=== PATIENT | female | born 1990 | race Caucasian/White ===

== ENCOUNTER 2022-07-18 09:43 | Outpatient (CLI) | payer OTHER, SELFPAY ==
--- OUTSIDE RECORDS SUMMARY | 2022-07-18 09:47 | XMS_ITS | Clinical Summary ---
:1990 Author Organization [facility] [place] [address] Care Team Providers Name Role Phone Pcp, No Primary Care Provider Unavailable Allergies No known active allergies Medications Hospital, Clinic, or Other Ordered Dose Route Frequency Start Date End Date Status Facility Administered Medication levonorgestrel intrauterine 1 Device IU Q 5 YEARS 09/16/2019 Active device (MIRENA) 1 DeviceIndications: Encounter for IUD insertion Active Problems Problem Noted Date (normal spontaneous vaginal delivery) 08/06/2019 01/22/2019 Overview: Formatting of this note is dif ferent from the original. Component Latest Ref Rng & Units 07/22/2019 HEMOGLOBIN 12.0 - 16.0 g/dL 12.6 MCV 80 - 100 fL 89 Culture No Group B Streptococcus isolated. Estimated Date of Delivery: 08/15/19 Patient's last menstrual period was 10/18 (within days). Last Tdap- 06/10/2019 Last Flu vaccine- 07/27/2019 Glucose (GTT) result- Component Latest Ref Rng & Units 04/30/2019 HEMOGLOBIN 12.0 - 16.0 g/dL 11.5 (L) MCV 80 - 100 fL 90 GLUCOSE,GESTATIONAL 65 - 139 mg/dL 85 20 week US: IMPRESSION: 1.Cephalic presentation. 2.No intrinsic abnormalities noted on an atomic survey. 3.Composite ultrasound age 20 weeks 3 da ys with BENITEZ of 08/14/2019 with an earlier established BENITEZ of 08/15/2019.. No Known Allergies OB History Para Term AB Living 5 2 2 0 2 2 SAB TAB Ectopic Multiple Live Births 2 0 0 0 0 # Outcome Date GA Lbr Hernandez/2nd Weight Sex Delivery Anes PTL Lv 5 Current 4 Term 08/22/12 M Vag 3 Term 05/10/07 39w0d 08:00 3.35 kg (7 l b 6 oz) M Vag Name: Vaughn 2 SAB 1 SAB Create lab flowsheet for OB labs- Component Latest Ref Rng & Units 01/08/2019 019 01/08/2019 11:17 AM 11:17 AM 11:17 AM ANTIBODY SCREEN Negative Negative SPECIMEN EXPIRATION DATE/TIME 01/11/19 23:59 HEMOGLOBIN 12.0 - 16.0 g/dL 13.2 MCV 80 - 100 fL 88 RUBELLA IGG ANTIBODY Positive 2.33 HEMOGLOBIN A1C SCREENING <6.4 % 4.9 ABORH A Rh Positive HBSAG Nonreactive Nonreactive HEPATITIS C ANTIBODY Non-Reactive Non-Reactive HIV-1/HIV-2 ANTIBODY Non-Reactive Non-Reactive TREPONEMA PALLIDUM Negative Negative Past Medical History: Diagnosis Date ? ? Encounter for supervision of other normal , first trimester 04/01/2018 ? ? No significant past medical history Past Surgical History: Procedure Laterality Date ? ? NO PREVIOUS SURGERY No data on file. Problems (from 01/08/19 to pre sent) No problems associated with this episod eMena Pedraza, RNC.....01/22/2019 9:54 AM Encounter for supervision of other normal , f irst trimester 04/01/2018 IUD migration 12/23/2013 Diverticulitis 12/03/2013 Overview: Diagnosed with CT scan [facility] 11/10/13. Treated with Cipro for 14 days. Resolved Problems Problem Noted Date Resolved Date Supervision of other normal 01/30/2012 Overview: EDC 08/27/12 based on sure LMP Group B Strep negative on 07/02/12 Hgb 11.4 on 07/23/12 6 hours of labor with first baby Supervision of normal first 04/07/2007 Immunizations Name Administration Dates Next Due DTP 03/20/1992, 1990, 1990, 1990 DTaP 06/12/1995 HIB HbOC (HibTITER) 07/07/1991 Influenza, IIV3 (Age >=3 years) 08/07/2012 Influenza, IIV4 07/27/2019, 08/26/2017 MMR 07/07/1991 Oral Polio Vaccine 06/12/1995, 03/20/1992, 1990, 1990 Tdap 06/10/2019, 08/14/2009 Family History Relation Name Status Comments Father Alive Mother Alive Son Vaughn Alive Social History Tobacco Use Types Packs/Day Years Used Date Former Smoker Cigarettes 1 12 Quit: 06/2017 Smokeless Tobacco: Never Used Tobacco Cessation: Counseling Given: Yes Comments: patient quit 5 months ago; 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 Alcohol Use Standard Drinks/Week Comments No 0 (1 standard drink = 0.6 oz pure alcoho l) Sex Assigned at Date Recorded Not on file Obstetrics History Para Term AB IAB SAB Ectopic Multiple Living Live Births 5 2 2 0 2 0 2 2 Date Outcome GA Total Labor/2nd/3rd Weight Sex Delivery Anes PTL Rosaura A 1 A5 Name Clin Labor SAB SAB 05/10 Term 39w 8h 00m/ 3.35 kg M Vag Dev 0d (7 lb 6 oz) 08/22 Term M Last Filed Vital Signs Vital Sign Reading Time Taken Comments Blood Pressure 119/83 10/18/2021 4:06 PM [employer] Pulse 93 10/18/2021 4:06 PM [employer] Temperature 37.2 ??C (99 ??F) 10/18/2021 4:06 PM [employer] Respiratory Rate - - Oxygen Saturation 100% 10/18/2021 4:06 PM [employer] Inhaled Oxygen Concentration - - Weight 96.2 kg (212 lb) 10/18/2021 4:06 PM [employer] Height 169 cm (5' 6.54) 01/08/2019 10:47 AM [employer] Body Mass Index 33.67 01/08/2019 10:47 AM [employer] Plan of Treatment Health Maintenance Due Date Last Done Comments Depression screening for age 12+ 12/21/2019 12/21/2018, 08/2017, 04/29/2017 BMI (ht and wt on same day) for 01/08/2020 01/08/2019, 05/19, age 18+ 05/19/2018, Additional history exists Pap test for age 21-65 08/26/2020 08/26/2017, 08/26/2017, 10/15/2012, Additional history exists COVID-19 vaccine series (3 - 10/16/2021 05/16/2021, 021 Booster for Pfizer series) Influenza for age 9-49 07/18/2022 07/27/2019, 08/26/2017, 08/07/2012 Tetanus booster 06/10/2029 06/10/2019, 08/14/2009 Hepatitis C screening for age Completed 01/08/2019 18-79 Tdap Completed 06/10/2019, 08/14/2009 Results Not on filefrom Last 3 Months Insurance Payer Benefit Plan / Subscriber ID Effective Dates Phone Addre ss Type Group [facility] [id number] 2018-Present [address] [address] [place] [address] Care Teams Director Of Application Development Relationship Specialty Start Date End Date Pcp, No PCP - General 11/24/21 .
[2022-07-18 16:19] LABS: Basophils Percent Auto 1.2 % (0.0-3.0); Eosinophils Percent Auto 6.9 % (0.0-7.0); Hematocrit 42.1 % (33.0-51.0); Hemoglobin* 14.2 gm/dL (12.0-16.0); Lymphocytes Percent Auto 37.1 % (20-44); Mean Corpuscular HGB Conc 34 gm/dL (32-36); Mean Corpuscular Hemoglobin 30 pg (26-34); Mean Corpuscular Volume 88 fL (80-100); Monocytes Percent Auto 10.5 % (0.0-11.0); Neutrophils Percent Auto 44.3 % (42.0-72.0); Platelet Count* 378 K/uL (140-440); RDW Coefficient of Variation % 11.7 % (11.5-15.5); Red Blood Count 4.78 m/uL (4.00-5.20); White Blood Count* 4.21 K/uL (4.50-11.00)
[2022-07-18 16:22] LABS: Slide Review Reflex No
[2022-07-18 17:54] LABS: Chloride* 105 mmol/L (96-114); Sodium* 139 mmol/L (135-149)
[2022-07-18 17:55] LABS: Potassium* 4.7 mmol/L (3.6-5.1)
[2022-07-18 17:57] LABS: Blood Urea Nitrogen* 6 mg/dL (5-24); Carbon Dioxide* 25 mmol/L (20-32); Creatinine* 0.6 mg/dL (0.5-1.5); Estimated Glomerular Filt Rate 122 ml/min
[2022-07-18 17:58] LABS: Calcium* 9.4 mg/dL (8.4-10.6); Glucose* 93 mg/dL (60-115)
== END 2022-07-18 09:44 | disposition home or self-care (01) ==
PROVIDERS: Visit Provider Nurse Practitioner Family
DX: R10.9 Unspecified abdominal pain (principal); R82.90 Unspecified abnormal findings in urine; R11.0 Nausea
CPT/HCPCS: 36415; 80048; 85025; 87086; 87186

== ENCOUNTER 2022-07-19 11:54 | Day surgery (SDC) | payer OTHER, SELFPAY ==
[2022-07-19] VITALS (12 sets, daily range): BP systolic 94–140; BP diastolic 43–85; PULSE 63–104; RESP 14–20; TEMP 36.5–37.1; O2SAT 95–100; BMI 35.2
--- NOTE | 2022-07-19 12:44 | ED_ITS ---
HPI - General Adult General Time Seen by Provider: 12:45 Date Seen: 07/19/22 Chief complaint: Abdominal Pain Stated complaint: Right side pain Time Seen by Provider: 07/19/22 11:56 Source: patient, RN notes reviewed and old records reviewed Mode of arrival: ambulatory Limitations: no limitations History of Present Illness HPI narrative: Patient is a 32-year-old female coming in with worsening right flank pain for further evaluation. She was seen in clinic in [place] yesterday, had some mild abnormalities to urinalysis, urine culture is pending, was started on Macrobid while awaiting culture results. Her white blood count was actually low in the 4000 range. Her basic metabolic ran normal. She has had no fevers or chills. She notices pain is deep in her right flank area, is a burning-type quality in worsens with activity. There are no respiratory symptoms with this, no sore throat, no nasal congestion. No nausea or vomiting, no diarrhea but does note diminished appetite. She really has been pushing fluids thinking that this could be a urinary tract infection. She has never had a history kidney stones. She had her gallbladder out about a year ago per report. Symptoms started on Friday, today is Friday. She initially noted color/cloudy change of the urine and it being odorous. Have reviewed Memo Silva's note from her visit. Urine test is negative yesterday in clinic. Related Data Previous Rx's Medication Instructions Recorded nitrofurantoin 100 mg PO Q12H 7 days #14 caps 07/18/22 monohydrate/macrocrystals 100 mg capsule (Macrobid) Allergies Allergy/AdvReac Type Severity Reaction Status Date / Time No Known Drug Allergies Allergy Verified 07/18/22 09:28 Review of Systems Status of ROS: Reports: 10 or more systems reviewed and unremarkable except as noted in History and below PFSH PFSH Social History Smoking Status: Former smoker Do you use any of these nicotine containing products: None Second hand tobacco smoke exposure: No How often do you have a drink containing alcohol: monthly or less How many standard drinks containing alcohol do you have on a typical day: 1 or 2 How often do you have six or more drinks on one occasion: Never AUDIT-C Alcohol total score: 1 Non-prescribed substance use: denies use Exam Const: Vital Signs, click to edit/add: Vital Signs - 24 hr 07/19/22 12:06 Temperature 98.4 F Pulse Rate [Right Pulse Oximeter] 104 H Respiratory Rate 20 Blood Pressure [Ri ght Upper Arm] 140/85 H Pulse Oximetry 100 Oxygen Delivery Me thod Room Air Documenting provider has reviewed patient's vital signs: yes Common normals: no apparent distress, average body habitus, oriented x3, no limitations, healthy appearing, alert and well nourished General appearance: cooperative, comfortable and well kempt HENMT: Common normals: normocephalic, head/scalp atraumatic and hearing grossly normal bilaterally Head and scalp: normocephalic and atraumatic Eye: Common normals: PERRL, EOMs intact bilaterally, conjunctivae normal and no scleral icterus Conjunctiva: conjunctiva(e) normal Pupil: PERRL Neck & C-Spine: Common normals: full ROM, no lymphadenopathy, supple, no meningeal signs, no JVD, thyroid normal and no carotid bruits Thyroid: thyroid normal Chest: Common normals: inspection of chest normal and palpation of chest normal Resp: Common normals: normal respiratory effort, no retractions, no use of accessory muscles and clear to auscultation bilaterally Auscultation: clear to auscultation bilaterally Cardio: Common normals: no JVD, regular rate, regular rhythm, S1 normal heart sound, S2 normal heart sound, no gallops, no clicks, no murmurs and no rub Rate: regular rate Rhythm: regular rhythm Heart sounds: S1 normal and S2 normal GI: Common normals: Normal to inspection, nondistended, normoactive bowel sounds present, soft to palpation, non-tender, no hepatosplenomegaly, no masses and no bruits Palpation: soft and no hepatosplenomegaly : Common normals: no CVA tenderness Bladder/kidney exam: no CVA tenderness Back & Pelvis: Common normals: no CVA tenderness Neuro: Common normals: oriented x3 Sensorium/orientation: alert Meningeal signs: no meningeal signs Speech: speech normal Gait (neuro): normal gait Psych: Appearance: well kempt Course Course Hospital Course: Patient is declining anything for pain at this time. Will place an IV and obtain blood work. We will do CT abdomen pelvis noncontrast at this time. Her gallbladder is gone, this could be intra-abdominal pathology with an atypical appendicitis, renal issues including possible early pyelonephritis, kidney stones. She is to let me know if she does develop any abdominal pain that is requiring pain management. Reevaluation(s) Reevaluation #1: Have reviewed with patient that she has a perforated IUD out of the uterus. She has had coffee and water today and last water was about a half a cup to 3/4 of a cup about an hour ago. She has not had any food since last night. IUD is a juvencio, was placed about 3 years ago in clinic. I have spoken with Dr. Taniya Hdz regarding this case and she will be coming over to consult. Time: 14:22 Reevaluation #2: Patient is going to await surgery on OB. She declines any need for pain medicines at this time. She is aware to be NPO. Time: 16:00 Vital Signs Vital signs: Initial Vital Signs Temperature 98.4 F 07/19/22 12:06 Temperature Source Temporal Artery Scan 07/19/22 12:06 Pulse Rate 104 H 07/19/22 12:06 Pulse Rhythm 07/19/22 12:06 Pulse Strength 0+ Absent 07/19/22 12:06 Respiratory Rate 20 07/19/22 12:06 Blood Pressure 140/85 H 07/19/22 12:06 Blood Pressure Mean 103 07/19/22 12:06 Blood Pressure Position Sitting 07/19/22 12:06 Pulse Oximetry 100 07/19/22 12:06 Oxygen Delivery Method 07/19/22 12:06 Vital Signs Temperature 98.4 F 07/19/22 12:06 Pulse Rate 104 H 07/19/22 12:06 Respiratory Rate 20 07/19/22 12:06 Blood Pressure 140/85 H 07/19/22 12:06 Pulse Oximetry 100 07/19/22 12:06 Oxygen Delivery Method 07/19/22 12:06 Temperature 98.4 F 07/19/22 12:06 Pulse Rate 104 H 07/19/22 12:06 Respiratory Rate 20 07/19/22 12:06 Blood Pressure 140/85 H 07/19/22 12:06 Pulse Oximetry 100 07/19/22 12:06 Oxygen Delivery Method 07/19/22 12:06 Medical Decision Making Lab Data Lab results reviewed: Yes I reviewed the patient's lab results Labs: Lab Results 07/19/22 07/19/22 07/19/22 Range/Units 12:54 13:32 13:32 WBC 5.10 (4.50-11.00) K/uL RBC 4.84 (4.00-5.20) m/uL Hgb 14.5 (12.0-16.0) gm/dL Hct 42.2 (33.0-51.0) % MCV 87 (80-100) fL MCH 30 (26-34) pg MCHC 34 (32-36) gm/dL RDW Coeff of Dilip 11.8 (11.5-15.5) % Plt Count 377 (140-440) K/uL Neut % (Auto) 56.7 (42.0-72.0) % Lymph % (Auto) 28.0 (20-44) % [place] % (Auto) 9.8 (0.0-11.0) % Eos % (Auto) 4.9 (0.0-7.0) % Baso % (Auto) 0.4 (0.0-3.0) % Neut # (Auto) 2.89 (1.7-7.0) K/uL Lymph # (Auto) 1.43 (0.90-2.90) K/uL [place] # (Auto) 0.50 (0.00-0.90) K/UL Eos # (Auto) 0.25 (0.00-0.50) K/uL Baso # (Auto) 0.02 (0.00-0.30) K/uL Abs Immat Gran (auto) 0.01 (0.00-0.30) K/uL Sodium 139 (135-149) mmol/L Potassium 4.2 (3.6-5.1) mmol/L Chloride 104 (96-114) mmol/L Carbon Dioxide 25 (20-32) mmol/L BUN 5 (5-24) mg/dL Creatinine 0.6 (0.5-1.5) mg/dL Estimated Creat Clear 126.01 Estimated GFR 122 ml/min Glucose 93 (60-115) mg/dL Lactate (0.5-1.9) mmol/L Calcium 9.3 (8.4-10.6) mg/dL Total Bilirubin 0.3 (0.1-1.5) mg/dL AST 20 (12-35) U/L ALT 18 (4-35) U/L Alkaline Phosphatase 98 (40-150) U/L C-Reactive Protein < 0.5 L (0.5-1.0) mg/dL Total Protein 8.3 (6.0-8.3) g/dL Albumin 4.6 (3.3-5.0) g/dL Lipase 56 (23-300) U/L SARS-CoV-2 (PCR) Negative SARS-CoV-2 (Negative) 07/19/22 Range/Units 13:32 WBC (4.50-11.00) K/uL RBC (4.00-5.20) m/uL Hgb (12.0-16.0) gm/dL Hct (33.0-51.0) % MCV (80-100) fL MCH (26-34) pg MCHC (32-36) gm/dL RDW Coeff of Dilip (11.5-15.5) % Plt Count (140-440) K/uL Neut % (Auto) (42.0-72.0) % Lymph % (Auto) (20-44) % [place] % (Auto) (0.0-11.0) % Eos % (Auto) (0.0-7.0) % Baso % (Auto) (0.0-3.0) % Neut # (Auto) (1.7-7.0) K/uL Lymph # (Auto) (0.90-2.90) K/uL [place] # (Auto) (0.00-0.90) K/UL Eos # (Auto) (0.00-0.50) K/uL Baso # (Auto) (0.00-0.30) K/uL Abs Immat Gran (auto) (0.00-0.30) K/uL Sodium (135-149) mmol/L Potassium (3.6-5.1) mmol/L Chloride (96-114) mmol/L Carbon Dioxide (20-32) mmol/L BUN (5-24) mg/dL Creatinine (0.5-1.5) mg/dL Estimated Creat Clear Estimated GFR ml/min Glucose (60-115) mg/dL Lactate 0.7 (0.5-1.9) mmol/L Calcium (8.4-10.6) mg/dL Total Bilirubin (0.1-1.5) mg/dL AST (12-35) U/L ALT (4-35) U/L Alkaline Phosphatase (40-150) U/L C-Reactive Protein (0.5-1.0) mg/dL Total Protein (6.0-8.3) g/dL Albumin (3.3-5.0) g/dL Lipase (23-300) U/L SARS-CoV-2 (PCR) (Negative) Imaging Data CT scan - abdomen: Attestation: I have reviewed the pertinent imaging results. Radiologist's impression: Patient: REESE GARCIA Facility:?[facility] Patient ID:?[id number] Site Patient ID:?[id number]. Site :?[id number] Study:?CT Abdomen/Pelvis WITHOUT-07/19/2022 1:09:26 PM Ordering Physician:?Christine Sheppard Final Report: INDICATION: Right flank pain x3 days. Nausea. TECHNIQUE: CT abdomen and pelvis without contrast. COMPARISON: CT abdomen and pelvis . FINDINGS: Lower chest: Unremarkable. Liver: Mild hepatomegaly. No focal liver lesion within limits of noncontrast exam. Gallbladder and bile ducts: Gallbladder is surgically absent. No biliary ductal dilation. Pancreas: Unremarkable. No mass or inflammation. Spleen: Mild splenomegaly. Adrenal glands: Normal in size. No nodules. Kidneys: Normal in size. No suspicious masses, stones, or hydronephrosis. GI tract: Small sliding-type hiatal hernia. Stomach and duodenum are unremarkable. Normal in caliber. No sign of mass or inflammation. Appendicolith in the appendix tip with no evidence of appendicitis. Vasculature: Unremarkable. Lymph nodes: No lymphadenopathy. Abdominal wall/Omentum/Peritoneum: Small fat containing umbilical hernia. No sign of mass or infiltration. No free air or significant free fluid. Pelvis: Uterus is retroflexed. The IUD sticks to the posterior right uterine fundus with both limbs outside of the uterus along the fundal contour. (See series 4, image 49 through 56 and series 5, image 53 through 61). No pelvic free fluid. Bones: Small Schmorl`s nodes in the anterior superior endplates of L3 and L4. IMPRESSION: 1. Uterus is retroflexed. IUD perforates the fundus on the right with both limbs outside of uterus along the contour. 2. No stones or hydronephrosis. Appendectomy within the tip of the appendix with no evidence of appendicitis. Findings conveyed to ER doctor at 1:55 p.m. on 07/19/2022. Please note that all CT scans at this facility use dose modulation, iterative reconstruction, and/or weight-based dosing when appropriate to reduce radiation dose to as low as reasonably achievable. Dictated by Brodie Uribe MD @ 07/19/2022 1:56:36 PM (Electronic Signature) Critical Care Time Critical Care Time Critical Care Time: No Discharge Plan Discharge Prescriptions: No Action nitrofurantoin monohyd/m-cryst [Macrobid] 100 mg capsule 100 mg PO Q12H 7 Days Qty: 14 0RF Rx Instructions: must administer with a meal/food Follow Up/Referrals: Provider,Not a Local [Primary Care Provider] -
--- NOTE | 2022-07-19 12:51 | CRLHL7_ITS ---
For Patients: As a result of the Century Cures Act, medical imaging exams and procedure reports are released immediately into your electronic medical record. You may view this report before your referring provider. If you have questions, please contact your health care provider. INDICATION: Right flank pain x3 days. Nausea. TECHNIQUE: CT abdomen and pelvis without contrast. COMPARISON: CT abdomen and pelvis . FINDINGS: Lower chest: Unremarkable. Liver: Mild hepatomegaly. No focal liver lesion within limits of noncontrast exam. Gallbladder and bile ducts: Gallbladder is surgically absent. No biliary ductal dilation. Pancreas: Unremarkable. No mass or inflammation. Spleen: Mild splenomegaly. Adrenal glands: Normal in size. No nodules. Kidneys: Normal in size. No suspicious masses, stones, or hydronephrosis. GI tract: Small sliding-type hiatal hernia. Stomach and duodenum are unremarkable. Normal in caliber. No sign of mass or inflammation. Appendicolith in the appendix tip with no evidence of appendicitis. Vasculature: Unremarkable. Lymph nodes: No lymphadenopathy. Abdominal wall/Omentum/Peritoneum: Small fat containing umbilical hernia. No sign of mass or infiltration. No free air or significant free fluid. Pelvis: Uterus is retroflexed. The IUD sticks to the posterior right uterine fundus with both limbs outside of the uterus along the fundal contour. (See series 4, image 49 through 56 and series 5, image 53 through 61). No pelvic free fluid. Bones: Small Schmorl`s nodes in the anterior superior endplates of L3 and L4. IMPRESSION: 1. Uterus is retroflexed. IUD perforates the fundus on the right with both limbs outside of uterus along the contour. 2. No stones or hydronephrosis. Appendectomy within the tip of the appendix with no evidence of appendicitis. Findings conveyed to ER doctor at 1:55 p.m. on 07/19/2022. Please note that all CT scans at this facility use dose modulation, iterative reconstruction, and/or weight-based dosing when appropriate to reduce radiation dose to as low as reasonably achievable. Dictated by Brodie Uribe MD @ 07/19/2022 1:56:36 PM (Electronically Signed)
[2022-07-19 13:34] LABS: Lactate* 0.7 mmol/L (0.5-1.9)
[2022-07-19 13:57] LABS: Albumin* 4.6 g/dL (3.3-5.0); Basophils Absolute Auto 0.02 K/uL (0.00-0.30); Basophils Percent Auto 0.4 % (0.0-3.0); Chloride* 104 mmol/L (96-114); Eosinophils Absolute Auto 0.25 K/uL (0.00-0.50); Eosinophils Percent Auto 4.9 % (0.0-7.0); Hematocrit 42.2 % (33.0-51.0); Hemoglobin* 14.5 gm/dL (12.0-16.0); Immature Granulocytes Abs Auto 0.01 K/uL (0.00-0.30); Lymphocytes Absolute Auto 1.43 K/uL (0.90-2.90); Mean Corpuscular HGB Conc 34 gm/dL (32-36); Mean Corpuscular Hemoglobin 30 pg (26-34); Mean Corpuscular Volume 87 fL (80-100); Monocytes Percent Auto 9.8 % (0.0-11.0); Neutrophils Absolute Auto 2.89 K/uL (1.7-7.0); Neutrophils Percent Auto 56.7 % (42.0-72.0); Platelet Count* 377 K/uL (140-440); RDW Coefficient of Variation % 11.8 % (11.5-15.5); Red Blood Count 4.84 m/uL (4.00-5.20); Sodium* 139 mmol/L (135-149)
[2022-07-19 13:58] LABS: Potassium* 4.2 mmol/L (3.6-5.1)
[2022-07-19 14:00] LABS: Bilirubin Total* 0.3 mg/dL (0.1-1.5); Creatinine* 0.6 mg/dL (0.5-1.5); Est. Creatinine Clearance* 126.01; Estimated Glomerular Filt Rate 122 ml/min
[2022-07-19 14:01] LABS: Alanine Aminotransferase* 18 U/L (4-35); Alkaline Phosphatase* 98 U/L (40-150); Aspartate Amino Transferase* 20 U/L (12-35); Blood Urea Nitrogen* 5 mg/dL (5-24); Calcium* 9.3 mg/dL (8.4-10.6); Carbon Dioxide* 25 mmol/L (20-32); Glucose* 93 mg/dL (60-115); Lipase* 56 U/L (23-300); Slide Review Reflex No; Total Protein* 8.3 g/dL (6.0-8.3)
[2022-07-19 14:04] LABS: C Reactive Protein* < 0.5 mg/dL (0.5-1.0)
[2022-07-19 14:24] LABS: SARS PCR* Negative SARS-CoV-2 (Negative)
--- NOTE | 2022-07-19 16:08 | ED.NURSE ---
Report to HIMA Arteaga on OB. Pt will go to OB and await surgery.
--- NOTE | 2022-07-19 16:27 | ED.NURSE ---
Report given to OB RN.
[2022-07-19] MEDS: LACTATED RINGERS 1000 ML 1,000 ML 100 ML IV (17:35)
[2022-07-19] MEDS: KETOROLAC 30 MG/ML inj IVP (17:45)
--- NOTE | 2022-07-19 18:10 | SUR.OPER ---
Upon visual examination on procedure start, Doctor was able to remove Complete, intact IUD with a Sanaz Clamp without further intervention.
--- NOTE | 2022-07-19 18:10 | PM.PROC ---
Procedure Note Time Seen by Provider: 18:10 Date Seen: 07/19/22 Date of procedure: 07/19/22 Will [facility] bill your pro fee for this procedure?: Yes Procedure: Preoperative diagnosis: 32-year-old with R flank pain, partially perforated Mirena IUD on USN. Postoperative diagnosis: Same. Procedure: IUD removal Anesthesia: General endotracheal Surgeon: Yessica Bojorquez MD Meat Market Manager: Janet White MD EBL: 0 ml Urine output: 50 mL clear urine IVF: 500 ml Specimen: Bilateral fallopian tubes to pathology. Findings: On exam under anesthesia: The uterus was anteverted, <8week size, mobile, without masses or nodularity palpable. Adnexa were without mass or fullness bilaterally. Procedure: Patient was taken to the operating room and general anesthesia was found be adequate. She was placed in dorsal lithotomy position. She was prepped and draped in normal sterile manner. A Joaquin catheter was placed. A sterile bivalve speculum was placed in the vaginal canal to visualize the cervix. IUD strings were noted to be protruding from the cervix by at least 5 cm. The IUD strings were grasped with a Sanaz clamp and the IUD removed without difficulty. The IUD was disposed of. The speculum removed Joaquin catheter removed and the patient wakened from anesthesia and taken to the recovery room All instrument lap counts were correct at the end of the procedure. Surgeon: Yessica Bojorquez MD
--- NOTE | 2022-07-19 18:29 | W.ANESCHARGE ---
Anesthesia Charges Start Date/Time Anesthesia Start Date: 07/19/22 Anesthesia Start Time: 17:35 Stop Date/Time Anesthesia Stop Date: 07/19/22 Anesthesia Stop Time: 18:25 Summary Emergency: Yes
--- NOTE | 2022-07-19 19:20 | PC.NURSE ---
Lungs clear all lung silveira, resp even/unlabored. Dr Bojorquez at bedside discussing procedure with patient.
--- NOTE | 2022-07-19 20:16 | PC.NURSE ---
PT requesting to leave as soon as possible. Pt has not voided as of yet. Dr Bojorquez notified and reported that patient may leave at this time, does not have to use bathroom before discharge. See dc orders.
--- NOTE | 2022-08-09 12:50 | CONS_ITS ---
Intake Visit Date 07/19/22 Intake Intake BMI [18 - 64 (<18.5 or >25)] [65& Older (<23 or >30) Visit Reasons: Right side pain Allergies No Known Drug Allergies Allergy (Verified 07/18/22 09:28) PFSH PFSH Active Problems (Updated 07/25/22 @ 11:27 by Margie Silva APRN, PRODUCT APPLICATIONS SCIENTIST) Recurrent urinary tract infection (Acute) N39.0 Abnormal urine odor (Acute) R82.90 Right flank pain (Acute) R10.9 Social History (Updated 07/22/22 @ 16:50 by Margie Silva APRN, PRODUCT APPLICATIONS SCIENTIST) Narrative: Single. 3 children. Works at [employer]. No formal exercise. Non- smoker. No alcohol. No illicit drug use. Smoking Status: Former smoker Do you use any of these nicotine containing products: None Second hand tobacco smoke exposure: No How often do you have a drink containing alcohol: monthly or less How many standard drinks containing alcohol do you have on a typical day: 1 or 2 How often do you have six or more drinks on one occasion: Never AUDIT-C Alcohol total score: 1 Non-prescribed substance use: denies use HPI HPI Comments Details: This patient is a 32-year-old who is seen in the emergency department for right- sided abdominal pain. The scan showed normal appendix and no kidney stones. Please see Dr. Srinivasan's ED note for complete details. The only thing noted on CT scan was that her IUD was partially perforating through the uterine muscle. I saw the patient in the emergency department and consented her for a laparoscopic removal of her IUD. Please see my operative report for complete details. Results POC Results Results POC Labs: BUN 5 mg/dL (5-24) 07/19/22 Chloride 104 mmol/L (96-114) 07/19/22 Creatinine 0.6 mg/dL (0.5-1.5) 07/19/22 Hct 42.2 % (33.0-51.0) 07/19/22 Hgb 14.5 gm/dL (12.0-16.0) 07/19/22 Plt Count 377 K/uL (140-440) 07/19/22 RBC 4.84 m/uL (4.00-5.20) 07/19/22 WBC 5.10 K/uL (4.50-11.00) 07/19/22 Potassium 4.2 mmol/L (3.6-5.1) 07/19/22 Sodium 139 mmol/L (135-149) 07/19/22 Urine Ketones Negative (Negative) 07/18/22 Urine Protein Negative (Negative) 07/18/22 Carbon Dioxide 25 mmol/L (20-32) 07/19/22 Glucose 93 mg/dL (60-115) 07/19/22 Assessment & Plan Plan Detail Time Spent: Please review Coding section regarding the total time spent today in the care of this patient, separate from any independently billable service. Care includes but is not limited to a medically appropriate evaluation and?the?documentation?of?the care?in?the?health?record.
== END 2022-07-19 20:30 | disposition home or self-care (01) ==
LOC: ED 12:56 → SS 16:27 → OB 16:29
PROVIDERS: Emergency Provider Family Medicine; Visit Provider Obstetrics & Gynecology
PROC: (CPT 49320; principal; 2022-07-19 17:15)
DX: T83.39XA Other mechanical complication of intrauterine contraceptive device, initial encounter (principal); Y76.8 Miscellaneous obstetric and gynecological devices associated with adverse incidents, not elsewhere classified; R10.9 Unspecified abdominal pain
CPT/HCPCS: 58301; 00840; 36415; 74176; 80053; 83605; 83690; 85025; 86140; 87635; 99140; 99284; J0330; J1100; J1200; J1885; J2405; J2704; J3010; J3490; J7120

== ENCOUNTER 2022-11-29 08:11 | Outpatient (CLI) | payer OTHER, SELFPAY ==
--- NOTE | 2022-11-29 08:15 | CRLHL7_ITS ---
For Patients: As a result of the Cures Act, medical imaging exams and procedure reports are released immediately into your electronic medical record. You may view this report before your referring provider. If you have questions, please contact your health care provider. INDICATION: Dating and viability. LMP 09/26/2022. COMPARISON: None. TECHNIQUE: Real-time wilkinson-scale imaging of the pelvis was performed. FINDINGS: Sonographic imaging demonstrates a single living intrauterine gestation. The embryo has a regular cardiac rate measuring 171 beats per minute. The embryo`s crown-rump length measurement of 2.4 cm corresponds to a gestational age of 9 weeks 1 day with a sonographic due date of 07/03/2023. There is a normal-appearing yolk sac. The placenta has not yet developed. No evidence of a perigestational hemorrhage. The right ovary measures 2.8 x 1.6 x 1.5 cm and the left ovary measures 2.5 x 2.0 x 2.6 cm. Corpus luteum in the left ovary. No free fluid in the cul-de-sac. IMPRESSION: 1. Single living intrauterine gestation with crown rump length 2.4 cm which corresponds to a gestational age of 9 weeks 1 day with a sonographic due date of 07/03/2023. 2. The clinical gestational age by LMP is 9 weeks 1 day. Dictated by Skylar Blakely MD @ 11/29/2022 1:12:20 PM (Electronically Signed)
== END 2022-11-29 08:12 | disposition home or self-care (01) ==
PROVIDERS: Visit Provider Registered Nurse
DX: Z34.91 Encounter for supervision of normal pregnancy, unspecified, first trimester (principal); Z3A.09 9 weeks gestation of pregnancy
CPT/HCPCS: 76817; 86592; 86701; 86702; 86703; 86762; 86787; 86803; 86850; 86900; 86901; 87086; 87340; 87491; 87536; 87591

== ENCOUNTER 2022-12-02 15:37 | Outpatient (CLI) | payer OTHER, SELFPAY ==
[2022-12-02 20:59] LABS: Vitamin B12* 669 pg/mL (243-894)
== END 2022-12-02 15:38 | disposition home or self-care (01) ==
LOC: NFLDREF 15:38
PROVIDERS: Visit Provider Family Medicine
DX: G62.9 Polyneuropathy, unspecified (principal)
CPT/HCPCS: 82607

== ENCOUNTER 2023-01-24 11:19 | Outpatient (CLI) | payer OTHER, SELFPAY | END 2023-01-24 11:20 | disposition home or self-care (01) | PROVIDERS: Visit Provider Obstetrics & Gynecology | DX: Z34.92 Encounter for supervision of normal pregnancy, unspecified, second trimester (principal); Z3A.17 17 weeks gestation of pregnancy | CPT/HCPCS: 87086 ==

== ENCOUNTER 2023-02-07 10:09 | Outpatient (CLI) | payer OTHER, SELFPAY ==
--- NOTE | 2023-02-07 10:19 | CRLHL7_ITS ---
For Patients: As a result of the Century Cures Act, medical imaging exams and procedure reports are released immediately into your electronic medical record. You may view this report before your referring provider. If you have questions, please contact your health care provider. INDICATION: Evaluate anatomy. COMPARISON: 11/29/2022 TECHNIQUE: Real time wilkinson scale imaging of the fetus was performed as well as color Doppler analysis of the umbilical vessels. FINDINGS: Sonographic imaging demonstrates a single living intrauterine gestation. Fetus demonstrates a regular cardiac rate of 144 beats per minute. Fetus has a longitudinal vertex position. The placenta lies posteriorly without evidence of placenta previa. The edge of the placenta is located 4.2 cm from the internal cervical os. Amniotic fluid volume appears normal. Single deepest vertical pocket: 4.2 cm. The cervix is closed and measures 4.6 cm in length. The composite ultrasound gestational age is calculated at 19 weeks 5 days with an estimated sonographic due date of 06/29/2023. The estimated weight is 332 grams which lies at the 93rd %. The following biometric measurements were obtained: Biparietal diameter: 4.3 cm/19 weeks 0 days 44th% Head circumference: 16.4 cm/19 weeks 1 day 43rd% Abdominal circumference: 15.3 cm/20 weeks 4 days 86th% Femur length: 3.2 cm/19 weeks 6 days 72nd% The HC/AC ratio measures: 1.07 range (1.08-1.26) On anatomic survey, there is a normal appearance of the cerebral ventricles, cavum septi pellucidi, cisterna magna and cerebellum. The nose, lips, and facial profile appear normal. The cervical, thoracic and lumbar spine are well visualized and appear normal. There is a normal four-chamber heart view and the left and right ventricular outflow tracts appear normal. The diaphragm and stomach appear normal. The kidneys and bladder also appear normal. There is a normal three-vessel cord and cord insertion site. The four extremities appear normal. IMPRESSION: Normal OB ultrasound exam with concordance of clinical and sonographic dating. No intrinsic abnormalities noted on anatomic survey. Dictated by Fidel Sosa MD @ 02/07/2023 12:26:54 PM (Electronically Signed)
== END 2023-02-07 10:10 | disposition home or self-care (01) ==
LOC: US 10:10
PROVIDERS: Visit Provider Obstetrics & Gynecology
DX: Z34.92 Encounter for supervision of normal pregnancy, unspecified, second trimester (principal); Z3A.19 19 weeks gestation of pregnancy
CPT/HCPCS: 76805

== ENCOUNTER 2023-05-02 14:06 | Outpatient (CLI) | payer OTHER, SELFPAY | END 2023-05-02 14:07 | disposition home or self-care (01) | PROVIDERS: Visit Provider Obstetrics & Gynecology | DX: O99.713 Diseases of the skin and subcutaneous tissue complicating pregnancy, third trimester (principal); L29.9 Pruritus, unspecified; Z3A.31 31 weeks gestation of pregnancy | CPT/HCPCS: 80053; 82239 ==

== ENCOUNTER 2023-05-09 10:01 | Outpatient (CLI) | payer OTHER, SELFPAY ==
--- NOTE | 2023-05-09 10:15 | CRLHL7_ITS ---
For Patients: As a result of the Century Cures Act, medical imaging exams and procedure reports are released immediately into your electronic medical record. You may view this report before your referring provider. If you have questions, please contact your health care provider. INDICATION: Third trimester scan, evaluate growth. Multiple sclerosis. COMPARISON: None. TECHNIQUE: Real time wilkinson scale imaging of the fetus was performed. FINDINGS: Sonographic imaging demonstrates a single living intrauterine gestation. Fetus demonstrates a regular cardiac rate of 126 beats per minute. Fetus has a vertex orientation and longitudinal lie with spine to the maternal right side. The placenta lies posteriorly without evidence of placenta previa. Amniotic fluid volume appears normal and there is a single deepest pocket measurement of 4.8 cm. The composite ultrasound gestational age is calculated at 33 weeks 5 days. The estimated weight is 2170 which lies at the 77th percentile. Biparietal diameter 8.6 cm, 34 weeks 6 days, greater than the 97th percentile. Head circumference 30.8 cm, 34 weeks 2 days, 71st percentile. Abdominal circumference 29.6 cm, 33 weeks 4 days, 86th percentile. Femur length 6.2 cm, 32 weeks 0 days, 33rd percentile. The HC/AC ratio measures 1.04 range (0.95-1.11). IMPRESSION: Single living intrauterine with a composite calculated ultrasound age 33 weeks 5 days with a sonographic due date of June 22, 2023. Normal amniotic fluid volume. Dictated by Koko Castillo MD @ 05/09/2023 11:18:46 AM (Electronically Signed)
== END 2023-05-09 10:02 | disposition home or self-care (01) ==
LOC: US 10:01
PROVIDERS: Visit Provider Obstetrics & Gynecology
DX: O26.893 Other specified pregnancy related conditions, third trimester (principal); G35 Multiple sclerosis; Z3A.33 33 weeks gestation of pregnancy
CPT/HCPCS: 76816

== ENCOUNTER 2023-05-26 14:45 | Outpatient (RCR) | payer SELFPAY | END 2023-06-16 14:54 | disposition home or self-care (01) | PROVIDERS: Visit Provider Obstetrics & Gynecology | DX: G35 Multiple sclerosis (principal); G62.9 Polyneuropathy, unspecified; M79.18 Myalgia, other site; Z51.89 Encounter for other specified aftercare | CPT/HCPCS: 97110; 97162 ==

== ENCOUNTER 2023-06-05 09:45 | Outpatient (CLI) | payer OTHER, SELFPAY ==
[2023-06-06 13:19] LABS: Strep B DNA Probe NEGATIVE (Negative)
[2023-06-06 13:34] LABS: Strep B Pen/Amox Allergy No
== END 2023-06-05 09:46 | disposition home or self-care (01) ==
LOC: NFLDREF 09:45
PROVIDERS: Visit Provider Obstetrics & Gynecology
DX: Z34.93 Encounter for supervision of normal pregnancy, unspecified, third trimester (principal); Z3A.36 36 weeks gestation of pregnancy
CPT/HCPCS: 87081; 87653

== ENCOUNTER 2023-06-09 14:20 | Outpatient (CLI) | payer OTHER, SELFPAY ==
[2023-06-09 14:20] VITALS: BP 129/80; PULSE 108; RESP 20; TEMP 37; O2SAT 98
[2023-06-09 14:26] VITALS: PULSE 103; O2SAT 97
[2023-06-09 14:31] VITALS: PULSE 108; O2SAT 96
[2023-06-09 14:36] VITALS: PULSE 111; O2SAT 97
[2023-06-09 15:38] LABS: Alkaline Phosphatase* 185 U/L (40-150); Aspartate Amino Transferase* 22 U/L (12-35); Bilirubin Total* 0.3 mg/dL (0.1-1.5); Total Protein* 7.5 g/dL (6.0-8.3)
[2023-06-09 15:39] LABS: Alanine Aminotransferase* 27 U/L (4-35)
--- NOTE | 2023-06-09 17:01 | PC.OBNST ---
NST Note NST Note Start: 06/09/23 14:21 Freq: ONCE Status: Active Protocol: Document 06/09/23 16:57 LG (Rec: 06/09/23 17:01 LG [id number]) NST Note 6 Para (# of births) 3 EDC 07/03/23 Gestational Age In Weeks & Days 36 Weeks & 4 Days Patient Presented with Complaint(s) of Decreased movement,Other Other Complaints Patient presented for triage with complaints of decreased movement and a noted increase of itching in hands, feet, and eyes. Patient has a history of Cholestasis in . Patient reports the itching started this past Friday and has progressively increased since that time with more notable itching in the evening. Liver Function Tests and Bile Acids ordered per MD. Reactive Yes Appropriate for Gestational Age Yes HIMA Benítez RN Date 06/09/23 Reactive Yes Appropriate for Gestational Age Yes HIMA Abel RN Date 06/09/23 OB NST charge Yes Complete NST Note via Write Note Yes The provider's electronic signature indicates the NST is reactive/appropriate for gestational age. *Note to provider: If an addendum is required, open the patient's chart and click on the note under the Nurse/Allied Health tab.
[2023-06-11 14:40] LABS: Bile Acids, Total 10 umol/L (0-10)
== END 2023-06-09 16:10 | disposition home or self-care (01) ==
LOC: OB OUT 14:20 → OB 14:25
PROVIDERS: Visit Provider Obstetrics & Gynecology
DX: O36.8130 Decreased fetal movements, third trimester, not applicable or unspecified (principal)
CPT/HCPCS: 36415; 59025; 80076; 82239; 99213

== ENCOUNTER 2023-06-13 09:06 | Outpatient (CLI) | payer OTHER, SELFPAY | END 2023-06-13 09:07 | disposition home or self-care (01) | PROVIDERS: Visit Provider Obstetrics & Gynecology | DX: O99.713 Diseases of the skin and subcutaneous tissue complicating pregnancy, third trimester (principal); L29.9 Pruritus, unspecified; Z3A.37 37 weeks gestation of pregnancy | CPT/HCPCS: 80076; 82239 ==

== ENCOUNTER 2023-06-14 07:21 | Inpatient (IN) | payer OTHER, SELFPAY ==
[2023-06-14] VITALS (107 sets, daily range): BP systolic 97–135; BP diastolic 53–85; PULSE 66–120; RESP 16–20; TEMP 36.8–37.2; O2SAT 87–100; BMI 38.6
--- NOTE | 2023-06-14 09:41 | P.LDBA_ITS ---
Subjective History of Present Illness Time Seen by Provider: 08:30 Date Seen: 06/14/23 Narrative: Patient is being admitted to Labor and Delivery for IOL in the setting of suspected ICP. She is a 33 year old at 37 2/7 weeks gestation. Her full history and physical was dictated by Dr. White on 06/13/23. Please see this for details. OB PROBLEM LIST: Preliminary HIV was reactive. Confirmatory testing was negative. (Negative antibodies and negative quant) 1. Working diagnosis of Multiple Sclerosis by [facility] currently - Brain and Spinal cord MRI 12/09/22: Hyperintense lesions in the lower cervical cord and upper thoracic cord suspicious for demyelinating disorder like MS, transverse myelitis, neuromyelitis optica. Brain MRI: artifact vs bilateral optical neuritis, no cerebral demyelinating findings. -Lumbar Puncture on 01/14/23 - Ophthalmology on 01/01/2023: No signs of optic neuritis or other neuro op signs of MS - Plan per neurology: reassess after delivery due to inconclusive findings - she is currently not on any medications. - her MFM at [facility]: No evidence of has a negative impact on long-term course cervical question of MS. She also received topical vaccines administration string . OB anesthesiologist was consulted regarding oral axial anesthesia. No contraindication to neuraxial anesthesia and they would not require further imaging of her spine. If symptoms worsens, steroids, including IV methylprednisolone can be used during . - May receive steroids as indicated. - Growth scan at 32 weeks: EFW 77%tile, AC 86%tile. - Anesthesia consult: 04/03/23 2. BMI 34.2. Hemoglobin A1C: 5.0 2. H/o 2 miscarriages 3. Intrahepatic Cholestasis of Labs ordered: LFTs and serum total bile acids: ordered Diagnosed based on: - Pruritis, predominately in the palms and feet and usually worse at night: Present - Elevated bile acids: 05/02 was 10, pending bile acids on 06/13 - Elevated transaminases: No - H/o cholestasis w/ last - Normal liver enzymes on 08/08 - Normal AST, ALT and bile acids on 05/02/2023. 4. contraception: - Considering vasectomy Flu: declines. Recommended. Covid: completed, not boosted. Recommended booster. Tdap: 04/18/2023 OB - Problem Based A/P Additional Plan (1) Encounter for induction of labor: Status: Acute Plan 1. IOL with IV Oxytocin and AROM when able. 2. GBS negative, no need for antibiotic prophylaxis. 3. Patient plans to get an epidural. 4. Expect a vaginal delivery. OB Exam Physical Exam Vital signs: Temp Pulse Resp BP Pulse Ox 98.2 F 110 H 18 122/75 96 06/14/23 07:45 06/14/23 07:45 06/14/23 07:45 06/14/23 07:45 06/14/23 07:46 Detailed Labor and Delivery Exam Patient Gravid: Yes Dilation (cm): 2 Effacement (%): 75 Cervix position: mid Consistency: soft Contraction Frequency: Irregular Tachysystole: No Contraction intensity: Mild Fetus (Single) Station: -2 Amniotic Membrane Status: intact Heart Rate Baseline: 130 Monitor Accelerations: Present Monitor Decelerations: Variable It Compliance Manager Variability: Moderate (6-25)
[2023-06-14] MEDS: LACTATED RINGERS 1000 ML 1,000 ML 125 ML IV ×2 (09:48→12:49)
[2023-06-14] MEDS: OXYTOCIN 30 unit/500 ML in NS 30 UNIT/500 ML BAG IVPB (09:50)
--- NOTE | 2023-06-14 12:13 | PM.OBPNL ---
Subjective Time Seen by Provider: 12:13 Date Seen: 06/14/23 Narrative: Okay Objective Vital Signs: Last Vital Signs Temp 98.4 F 06/14/23 11:42 Pulse 82 06/14/23 11:42 Resp 18 06/14/23 11:42 BP 117/58 L 06/14/23 11:42 Pulse Ox 96 06/14/23 07:46 Pelvic Exam Dilation (cm): 4-5 Effacement (%): 80 Station: -2 Contractions Monitor mode: External Contraction pattern: Regular Contraction intensity: Mild Pitocin Rate (mU/min): 4 Assessment Assessment: induction ongoing Station: -2 Amniotic Membrane Status: AROM Status: Category l Heart Rate Baseline: 130 [facility] Variability: Moderate (6-25) Monitor Accelerations: Present Monitor Decelerations: None Plan Plan: Verbal consent obtained for AROM. Small amount of clear fluid. Cervix after AROM 5cm. Progressing well. She is requesting an epidural at the moment. Will f/u closely.
[2023-06-14] MEDS: fentaNYL 250 MCG/5 ML inj 100 MCG EPIDURAL (12:49)
[2023-06-14] MEDS: LIDOCAINE 2% (PF) 5 ML VIAL EPIDURAL (12:51)
[2023-06-14] MEDS: ROPIVACAINE 0.2% 100 ml 100 ML 12 MG EPIDURAL (12:56)
[2023-06-14] MEDS: PHENYLEPHRINE 100 MCG/ML SYRINGE IVP (12:58)
--- NOTE | 2023-06-14 13:07 | P.ANBPRC_ITS ---
[facility] Medical History Conjunctivitis ?H10.9 - Unspecified conjunctivitis (ICD-10) Miscarriage ?O03.9 - Complete or unspecified spontaneous without complication (ICD-10) Cholestasis during ?O26.619 - Liver and biliary tract disorders in , unspecified trimester (ICD-10) ?K83.1 - Obstruction of bile duct (ICD-10) Surgical History H/O dilation and curettage ?Z98.890 - Other specified postprocedural states (ICD-10) Social History Narrative: Single. 3 children. Works at [employer]. No formal exercise. Non- smoker. No alcohol. No illicit drug use. What is your current living situation?: I presently have a place to live Problems where you live: no known problems In the past 12 months, utilities in danger of being shut off: no In the past 12 mos, have been you worried that your food would run out before you had money to buy more?: never true In the past 12 mos, the food you bought just didn't last and you didn't have money to buy more?: never true Smoking Status: Former smoker Do you use any of these nicotine containing products: None Second hand tobacco smoke exposure: No How often do you have a drink containing alcohol: monthly or less How many standard drinks containing alcohol do you have on a typical day: 1 or 2 How often do you have six or more drinks on one occasion: Never AUDIT-C Alcohol total score: 1 Non-prescribed substance use: denies use How often does anyone, including family, friends and others, physically hurt you : never How often does anyone, including family, friends and others, insult or talk down to you: never How often does anyone, including family, friends and others, threaten you with harm: never How often does anyone, including family, friends and others, scream or curse at you: never Little interest or pleasure in doing things: not at all Feeling down, depressed, or hopeless: not at all Meds Home Medications and Allergies Home Medications Medication Instructions Recorded Confirmed Type prenat.vits,fidelina,[id number] 1 tab PO QDAY 11/29/22 06/14/23 History Allergies Allergy/AdvReac Type Severity Reaction Status Date / Time No Known Drug Allergies Allergy Verified 06/14/23 12:37 Results Vital Signs Vital Signs: Last Vital Signs Temp 98.3 F 06/14/23 12:02 Pulse 90 06/14/23 13:05 Resp 18 06/14/23 11:42 BP 119/71 06/14/23 13:05 Pulse Ox 94 06/14/23 13:03 Weight: 108.635 kg Height: 167.64 cm Anesthesia Procedures Epidural Insertion Patient Location: OB Start Time: 12:15 Stop Time: 13:15 Start Date: 06/14/23 Stop Date: 06/14/23 Reason for Block: primary anesthetic Patient Position: sitting Performed By: Shorty Sanchez Preanesthetic Checklist: IV checked, risks and benefits discussed, surgical consent, monitors and equipment checked, pre-op evaluation, timeout performed and anesthesia consent Prep: chlorhexidine gluconate Monitoring: blood pressure monitoring, nuclear monitoring technician, continuous pulse oximetry and heart rate Approach: midline Vertebral Space: lumbar (1-5) Needle Type: Tuohy needle Injection Technique: continuous catheter Needle gauge: 17 Needle Length (cm): 10 cm Needle Insertion Depth (cm): 6 Catheter Gauge: 19 Catheter Type: multi-orifice Catheter at skin depth (cm): 12 Test Dose Result: negative and lidocaine 1.5% with epinephrine 1 to 200,000 Events: other
--- NOTE | 2023-06-14 15:39 | W.PM.OBVAGDE ---
OB Procedure Vag Delivery Mother Details Mother Details: The patient is a 33 year-old, 6, Para 3, admitted on 06/14/23 at 37 2/7 weeks gestation due to suspected ICP. Induction of labor started with IV Oxytocin progressed well, AROM and progressed quickly after that. : 6 Para: 3 Weeks Gestation: 37.2 Admission Date: 06/14/23 Additional Details Amniotic Membrane Status: AROM Amniotic Membrane Rupture Date: 06/14/23 Amniotic Membrane Rupture Time: 12:01 Amniotic Membrane Fluid Description: Clear Analgesia/Anesthesia Type: Epidural Waterbirth: No Pitcoin: Yes Intrapartal Events: Labor Induction Induction Method: per misoprostol protocol and AROM Delivery augmentation: rupture of membranes Labor Onset: 11:59 Complete: 15:24 Pushin:27 Heart: heart tones during second stage were category 2. heart rate difficult to assess and recommendation was given to place an internal monitor, when I checked her baby was already at +2 station, we were able to accommodate external monitor well and hear rate was found in the 110s, patient was placed in lithotomy position and baby was seen , delivered with 1 push. Delivery Details Delivery Date: 06/14/23 Delivery Time: 15:28 Route of delivery: Gender: Male Infant Viability: Alive; Heart Rate Present Position at Delivery: OA Delivery Details: Delivered over intact perineum via spontaneous vaginal delivery. was placed on maternal abdomen.? Cord was clamped and cut after a 30-60 second delay. Nose and mouth were bulb suctioned.? weight pending. 1 Minute Interval Total Score: 8 5 Minute Interval Total Score: 8 Additional Details Shoulder Dystocia: No Placenta Delivery Time: 15:33 Placental Delivery Description: Spontaneous Procedure Done: Global Blood Loss: 50 Laceration: Vaginal - 1st Degree (Not bleeding, not repaired, small at the introitus of about 1cm.) Episiotomy Description: None Blood Loss Measurement Type: QBL Bakri Used: No Sponge/Need Count Correct: Yes Cord Vessel Description: 3 Vessels, Nuchal Cord, True Knot and Reduced Event Summary Status: Mother and infant were stable after delivery. Disposition: floor
[2023-06-15 01:27] VITALS: BP 105/66; PULSE 70; RESP 16; O2SAT 97
[2023-06-15 05:44] VITALS: BP 118/78; PULSE 69; RESP 18; TEMP 36.5; O2SAT 99
[2023-06-15 05:51] LABS: Hemoglobin* 12.2 gm/dL (12.0-16.0)
[2023-06-15 10:00] VITALS: BP 108/72; PULSE 67; RESP 16; TEMP 36.4; O2SAT 97
--- NOTE | 2023-06-15 10:06 | PM.OBDSVD1 ---
DS: Providers Provider Time Seen by Provider: 10:07 Date Seen: 06/15/23 Date of admission: 06/14/23 07:21 Primary care physician: Not a Local Provider Admitting Clinician: Judi Donnelly MD Attending Physician on discharge: Judi Donnelly MD Date of Discharge: 06/15/23 DS: Diagnosis Discharge Diagnosis (1) Spontaneous vaginal delivery: Status: Acute Exam Narrative: Exam Narrative: VITAL SIGNS: As noted above. GENERAL APPEARANCE: Alert, cooperative female in no acute distress. MOOD & AFFECT: Normal. ABDOMEN: Soft, non-distended and nontender. Well contracted uterus at the level of the umbilicus. : Normal lochia. EXTREMITIES: Nonedematous. Well perfused. Nontender. Const: Vital Signs, click to edit/add: Vital Signs - 24 hr 06/14/23 10:23 06/14/23 11:00 06/14/23 11:42 Temperature Pulse Rate 83 85 82 Pulse Rate [Pulse Oximeter] Respiratory Rate Blood Pressure 113/68 120/70 117/58 L Blood Pressure [Le ft Arm] P[facility]ximetry [facility] 11:42 06/14/23 12:02 06/14/23 12:43 Temperature 98.4 F 98.3 F Pulse Rate 80 Pulse Rate [Pulse Oximeter] Respiratory Rate 18 Blood Pressure 127/68 Blood Pressure [Le ft Arm] Pulse Oximetry [facility] 06/14/23 12:45 06/14/23 12:47 06/14/23 12:48 Temperature Pulse Rate 92 92 Pulse Rate [Pulse Oximeter] Respiratory Rate Blood Pressure 128/66 135/73 Blood Pressure [Le ft Arm] Pulse Oximetry [facility] 06/14/23 12:49 06/14/23 12:51 06/14/23 12:53 Temperature Pulse Rate 71 75 80 Pulse Rate [Pulse Oximeter] Respiratory Rate Blood Pressure 116/85 123/58 L 115/55 L Blood Pressure [Le ft Arm] Pulse Oximetry [facility] 06/14/23 12:55 06/14/23 12:56 06/14/23 12:57 Temperature Pulse Rate 79 93 Pulse Rate [Pulse Oximeter] Respiratory Rate Blood Pressure 106/58 L 97/56 L Blood Pressure [Le ft Arm] Pulse Oximetry 94 Oxygen Delivery Mt thod 06/14/23 12:58 06/14/23 13:00 06/14/23 13:00 Temperature 98.3 F Pulse Rate 83 Pulse Rate [Pulse Oximeter] Respiratory Rate 18 Blood Pressure 100/55 L Blood Pressure [Le ft Arm] Pulse Oximetry 94 Oxygen Delivery Me thod 06/14/23 13:03 06/14/23 13:05 06/14/23 13:07 Temperature Pulse Rate 75 90 76 Pulse Rate [Pulse Oximeter] Respiratory Rate Blood Pressure 105/60 119/71 119/71 Blood Pressure [Le ft Arm] Pulse Oximetry 94 Oxygen Delivery Me thod 06/14/23 13:08 06/14/23 13:09 06/14/23 13:13 Temperature Pulse Rate 94 Pulse Rate [Pulse Oximeter] Respiratory Rate Blood Pressure 118/69 Blood Pressure [Le ft Arm] Pulse Oximetry 95 95 Oxygen Delivery Me thod 06/14/23 13:15 06/14/23 13:18 06/14/23 13:22 Temperature Pulse Rate 94 88 Pulse Rate [Pulse Oximeter] Respiratory Rate Blood Pressure 117/69 116/58 L Blood Pressure [Le ft Arm] Pulse Oximetry 94 Oxygen Delivery Me thod 06/14/23 13:23 06/14/23 13:25 06/14/23 13:26 Temperature Pulse Rate 86 Pulse Rate [Pulse Oximeter] Respiratory Rate Blood Pressure 109/56 L Blood Pressure [Le ft Arm] Pulse Oximetry 94 91 Oxygen Delivery Me thod 06/14/23 13:28 06/14/23 13:30 06/14/23 13:33 Temperature Pulse Rate 85 Pulse Rate [Pulse Oximeter] Respiratory Rate Blood Pressure 119/63 Blood Pressure [Le ft Arm] Pulse Oximetry 95 92 Oxygen Delivery Me thod 06/14/23 13:36 06/14/23 13:38 06/14/23 13:43 Temperature Pulse Rate 76 Pulse Rate [Pulse Oximeter] Respiratory Rate Blood Pressure 128/67 Blood Pressure [Le ft Arm] Pulse Oximetry 92 93 Oxygen Delivery Me thod 06/14/23 13:46 06/14/23 13:48 06/14/23 13:49 Temperature Pulse Rate 78 Pulse Rate [Pulse Oximeter] Respiratory Rate Blood Pressure 131/64 Blood Pressure [Le ft Arm] Pulse Oximetry 92 91 Oxygen Delivery Me thod 06/14/23 13:50 07/29/23 13:53 06/14/23 13:55 Temperature Pulse Rate 84 85 Pulse Rate [Pulse Oximeter] Respiratory Rate Blood Pressure 122/57 L 117/58 L Blood Pressure [Le ft Arm] Pulse Oximetry 93 Oxygen Delivery Me thod 06/14/23 13:58 06/14/23 14:01 06/14/23 14:01 Temperature 98.4 F Pulse Rate 96 Pulse Rate [Pulse Oximeter] Respiratory Rate 16 Blood Pressure 110/67 Blood Pressure [Le ft Arm] Pulse Oximetry 93 Oxygen Delivery Me thod 06/14/23 14:02 06/14/23 14:03 06/14/23 14:08 Temperature Pulse Rate Pulse Rate [Pulse Oximeter] Respiratory Rate Blood Pressure Blood Pressure [Le ft Arm] Pulse Oximetry 91 93 92 Oxygen Delivery Me thod 06/14/23 14:13 06/14/23 14:18 06/14/23 14:22 Temperature Pulse Rate 83 Pulse Rate [Pulse Oximeter] Respiratory Rate Blood Pressure 117/56 L Blood Pressure [Le ft Arm] Pulse Oximetry 92 92 Oxygen Delivery Me thod 06/14/23 14:23 06/14/23 14:28 06/14/23 14:33 Temperature Pulse Rate Pulse Rate [Pulse Oximeter] Respiratory Rate Blood Pressure Blood Pressure [Le ft Arm] Pulse Oximetry 91 93 93 Oxygen Delivery Me thod 06/14/23 14:35 06/14/23 14:38 06/14/23 14:43 Temperature Pulse Rate 76 Pulse Rate [Pulse Oximeter] Respiratory Rate Blood Pressure 111/59 L Blood Pressure [Le ft Arm] Pulse Oximetry 92 92 Oxygen Delivery Me thod 06/14/23 14:48 06/14/23 14:51 06/14/23 14:53 Temperature Pulse Rate 80 Pulse Rate [Pulse Oximeter] Respiratory Rate Blood Pressure 124/63 Blood Pressure [Le ft Arm] Pulse Oximetry 93 93 Oxygen Delivery Me thod 06/14/23 14:58 06/14/23 15:03 06/14/23 15:07 Temperature Pulse Rate 77 Pulse Rate [Pulse Oximeter] Respiratory Rate Blood Pressure 103/53 L Blood Pressure [Le ft Arm] Pulse Oximetry 93 92 Oxygen Delivery Me thod 06/14/23 15:08 06/14/23 15:13 06/14/23 15:18 Temperature Pulse Rate Pulse Rate [Pulse Oximeter] Respiratory Rate Blood Pressure Blood Pressure [Le ft Arm] Pulse Oximetry 91 92 94 Oxygen Delivery Me thod 06/14/23 15:20 06/14/23 15:23 06/14/23 15:28 Temperature Pulse Rate 85 Pulse Rate [Pulse Oximeter] Respiratory Rate Blood Pressure 129/64 Blood Pressure [Le ft Arm] Pulse Oximetry 94 96 Oxygen Delivery Me thod 06/14/23 15:33 06/14/23 15:35 06/14/23 15:35 Temperature 98.6 F Pulse Rate 88 Pulse Rate [Pulse Oximeter] 88 Respiratory Rate 18 Blood Pressure 112/55 L Blood Pressure [Le ft Arm] 112/55 L Pulse Oximetry 94 95 Oxygen Delivery Me thod 06/14/23 15:38 06/14/23 15:43 06/14/23 15:48 Temperature Pulse Rate Pulse Rate [Pulse Oximeter] Respiratory Rate Blood Pressure Blood Pressure [Le ft Arm] Pulse Oximetry 95 96 95 Oxygen Delivery Me thod 06/14/23 15:50 06/14/23 15:50 06/14/23 15:53 Temperature Pulse Rate 77 Pulse Rate [Pulse Oximeter] 77 Respiratory Rate 18 Blood Pressure 100/67 Blood Pressure [Le ft Arm] 100/67 Pulse Oximetry 95 95 Oxygen Delivery Me thod 06/14/23 15:58 06/14/23 16:03 06/14/23 16:05 Temperature Pulse Rate 74 Pulse Rate [Pulse Oximeter] Respiratory Rate Blood Pressure 108/57 L Blood Pressure [Le ft Arm] Pulse Oximetry 94 94 Oxygen Delivery Me thod 06/14/23 16:05 06/14/23 16:08 06/14/23 16:13 Temperature Pulse Rate Pulse Rate [Pulse Oximeter] 74 Respiratory Rate 18 Blood Pressure Blood Pressure [Le ft Arm] 108/57 L Pulse Oximetry 94 94 94 Oxygen Delivery Me thod 06/14/23 16:18 06/14/23 16:20 06/14/23 16:20 Temperature 98.6 F Pulse Rate 75 Pulse Rate [Pulse Oximeter] 75 Respiratory Rate 20 Blood Pressure 116/63 Blood Pressure [Le ft Arm] 116/63 Pulse Oximetry 94 94 Oxygen Delivery Me thod 06/14/23 16:23 06/14/23 16:28 06/14/23 16:33 Temperature Pulse Rate Pulse Rate [Pulse Oximeter] Respiratory Rate Blood Pressure Blood Pressure [Le ft Arm] Pulse Oximetry 94 94 94 Oxygen Delivery Me thod 06/14/23 16:35 06/14/23 16:35 06/14/23 16:38 Temperature Pulse Rate 68 Pulse Rate [Pulse Oximeter] 73 Respiratory Rate 16 Blood Pressure 112/61 Blood Pressure [Le ft Arm] 112/61 Pulse Oximetry 95 95 Oxygen Delivery Me thod 06/14/23 16:43 06/14/23 16:48 06/14/23 16:50 Temperature Pulse Rate 71 Pulse Rate [Pulse Oximeter] Respiratory Rate Blood Pressure 116/60 Blood Pressure [Le ft Arm] Pulse Oximetry 94 94 Oxygen Delivery Me thod 06/14/23 16:50 06/14/23 16:53 06/14/23 16:58 Temperature Pulse Rate Pulse Rate [Pulse Oximeter] 73 Respiratory Rate 18 Blood Pressure Blood Pressure [Le ft Arm] 116/60 Pulse Oximetry 94 94 92 Oxygen Delivery Me thod 06/14/23 17:03 06/14/23 17:05 06/14/23 17:08 Temperature Pulse Rate Pulse Rate [Pulse Oximeter] 67 Respiratory Rate 18 Blood Pressure Blood Pressure [Le ft Arm] 116/68 Pulse Oximetry 93 94 93 Oxygen Delivery Me thod 06/14/23 17:11 06/14/23 17:13 06/14/23 17:18 Temperature Pulse Rate 68 Pulse Rate [Pulse Oximeter] Respiratory Rate Blood Pressure 116/68 Blood Pressure [Le ft Arm] Pulse Oximetry 92 94 Oxygen Delivery Me thod 06/14/23 17:20 06/14/23 17:21 06/14/23 17:23 Temperature 98.4 F Pulse Rate 71 Pulse Rate [Pulse Oximeter] 71 Respiratory Rate 18 Blood Pressure 112/66 Blood Pressure [Le ft Arm] 112/66 Pulse Oximetry 94 94 Oxygen Delivery Me thod 06/14/23 17:28 06/14/23 17:33 06/14/23 17:34 Temperature Pulse Rate Pulse Rate [Pulse Oximeter] Respiratory Rate Blood Pressure Blood Pressure [Le ft Arm] Pulse Oximetry 93 95 87 L Oxygen Delivery Me thod 06/14/23 19:23 06/14/23 23:19 06/15/23 01:27 Temperature 99.0 F 98.2 F Pulse Rate Pulse Rate [Pulse Oximeter] 67 72 70 Respiratory Rate 18 18 16 Blood Pressure Blood Pressure [Le ft Arm] 118/79 114/78 105/66 Pulse Oximetry 99 97 97 Oxygen Delivery Me thod Room Air Room Air Room Air 06/15/23 05:44 Temperature 97.7 F Pulse Rate Pulse Rate [Pulse Oximeter] 69 Respiratory Rate 18 Blood Pressure Blood Pressure [Le ft Arm] 118/78 Pulse Oximetry 99 Oxygen Delivery Me thod Room Air OB - DS: Summary Hospital Course Hospital Course: The patient is a 33 year old G 6 P 4024 at 37 2/7 weeks gestation that was admitted to the Center on 06/14/23 for IOL in the setting of suspected ICP. She had an uncomplicated vaginal delivery. She delivered a viable male infant. She is breast feeding. the patient has done well. Peripartum Data Infant delivery method: Vaginal Laceration description: Vaginal - 1st Degree Episiotomy description: None complications: none Gender: Male Discharge Plan: Home Status at Discharge Functional status at discharge: independent ambulation Overall status at discharge: patient is progressing back to baseline Time Spent with Patient Time attestation: Total time spent providing and/or coordinating discharge services: Time spent: Less than 30 minutes Discharge Plan Discharge Disposition: Home, Self-Care Date of Admission: 06/14/23 07:21 Attending Provider on Discharge: Judi Donnelly Primary Care Provider: Provider,Not a Local Condition: Stable Anticipated Discharge Date/Time: 06/15/23 10:10 Discharge Medications: New acetaminophen 500 mg Tablet 1,000 mg PO Q6H PRNQty: 15 0RF ibuprofen 600 mg Tablet 600 mg PO Q6H PRNQty: 30 0RF Continued prenat.vits,fidelina,sna-pcpc-orehu Tablet 1 tab PO QDAY omeprazole 20 mg capsule,delayed release(DR/EC) 20 mg PO QDAY Qty: 60 0RF Discontinued ferrous sulfate 27 mg iron tablet 27 mg PO .MWF Qty: 60 0RF Discharge Orders: Discharge Order (Routine); Ordered 06/15/23 Ordered By: Judi Donnelly Patient Education: OB Vaginal/Breast Feeding Activity Level: Activity as Tolerated Activity Detail: Noting vaginally for 6 weeks Discharge Diet: Regular Follow Up Appointments: Provider,Not a Local [Primary Care Provider] - Forms: [employer] Info Instructions Discharge Comments: Follow up in clinic for 2 week pospartum follow up on and mood, then at 6 weeks for usual visit.
[2023-06-15 16:00] VITALS: BP 115/72; PULSE 66; RESP 16; TEMP 36.4; O2SAT 98
== END 2023-06-15 14:50 | disposition home or self-care (01) | DRG 805 ==
PROVIDERS: Admitting Provider Obstetrics & Gynecology; Visit Provider Obstetrics & Gynecology
DX: O26.62 Liver and biliary tract disorders in childbirth (principal); K83.1 Obstruction of bile duct; Z37.0 Single live birth; O99.354 Diseases of the nervous system complicating childbirth; G35 Multiple sclerosis; Z3A.37 37 weeks gestation of pregnancy
CPT/HCPCS: 01967; 36415; 85018; 88307; J2371; J2795; J3010; J7120

== ENCOUNTER 2024-06-18 09:09 | Emergency (ER) | payer OTHER, SELFPAY ==
[2024-06-18 09:17] VITALS: BP 139/95; PULSE 92; RESP 18; TEMP 36.3; O2SAT 100; BMI 34.7
--- NOTE | 2024-06-18 09:23 | ED.ABDPAIN ---
HPI - Abdominal Pain General Time Seen by Provider: 09:23 Date Seen: 06/18/24 Chief Complaint: Constipation Stated Complaint: Diveriticulitis Time Seen by Provider: 06/18/24 09:21 Source: patient and RN notes reviewed Mode of arrival: ambulatory Limitations: no limitations History of Present Illness HPI narrative: This 34-year-old female is coming into the ER with concern of constipation and abdominal pain that has been progressive over a month. She states she has a history of constipation but it will usually just work itself out. She has not really been doing anything for her constipation. Over this past month, constipation is been worse. She has been having increasing left-sided abdominal pain. Appetite is down, if she tries to eat it makes her symptoms worse. No urinary symptoms. She does have Nexplanon for contraception. Some nausea if she does eat too much but no vomiting. There have been no fevers or chills. She had a small amount of stool on Friday but it was small and hard. She believes that she has been diagnosed with diverticulitis twice in her past, the 1st time was in 2013 and she does not remember much about that. She did get treated a 2nd time, thought that constipation was worse with it. MD elicited complaint: abdominal pain Pertinent past history: constipation Related Data Hx Last Menstrual Period: Nexplanon Patient : No Home Medications ?Medication ?Instructions ?Recorded ?Confirmed peginterferon beta-1a 125 mcg/0.5 mcg subcut Q2W 06/18/24 mL subcutaneous pen injector (Plegridy) Allergies Allergy/AdvReac Type Severity Reaction Status Date / Time No Known Drug Allergies Allergy Verified 06/18/24 09:16 Review of Systems Status of ROS Reports: 6 or more systems reviewed and unremarkable except as noted in History and below [facility] Medical History Conjunctivitis ?H10.9 - Unspecified conjunctivitis (ICD-10) Miscarriage ?O03.9 - Complete or unspecified spontaneous without complication (ICD-10) Cholestasis during ?O26.619 - Liver and biliary tract disorders in , unspecified trimester (ICD-10) ?K83.1 - Obstruction of bile duct (ICD-10) Surgical History H/O dilation and curettage ?Z98.890 - Other specified postprocedural states (ICD-10) Social History Narrative: Single. 3 children. Works at [employer]. No formal exercise. Non-smoker. No alcohol. No illicit drug use. What is your current living situation?: I presently have a place to live Problems where you live: no known problems In the past 12 months, utilities in danger of being shut off: no In past 12 months, lack of transportation kept you from medical appts, meetings, work, or getting things needed for daily living: no In the past 12 mos, have been you worried that your food would run out before you had money to buy more?: never true In the past 12 mos, the food you bought just didn't last and you didn't have money to buy more?: never true Smoking Status: Former smoker Do you use any of these nicotine containing products: None Second hand tobacco smoke exposure: No How often do you have a drink containing alcohol: monthly or less How many standard drinks containing alcohol do you have on a typical day: 1 or 2 How often do you have six or more drinks on one occasion: Never AUDIT-C Alcohol total score: 1 Non-prescribed substance use: denies use How often does anyone, including family, friends and others, physically hurt you: never How often does anyone, including family, friends and others, insult or talk down to you: never How often does anyone, including family, friends and others, threaten you with harm: never How often does anyone, including family, friends and others, scream or curse at you: never Little interest or pleasure in doing things: not at all Feeling down, depressed, or hopeless: not at all Exam Const: Vital Signs, click to edit/add: Vital Signs - 24 hr 06/18/24 09:17 Temperature 97.4 F L Pulse Rate [Pulse Oximeter] 92 Respiratory Rate 18 Blood Pressure [Ri ght Upper Arm] 139/95 H Pulse Oximetry 100 Oxygen Delivery Me thod Room Air This 34-year-old female is alert, interactive, no apparent distress. Sclera clear come conjugate gaze. Able speak in complete sentences, speech is normal. Neck supple, no adenopathy no thyromegaly masses or nodules. Lungs are clear come good air entry, no wheezing or crackles. CV regular rate and rhythm, no murmur, normal S1-S2, S3-S4. Abdomen is soft, nondistended, nontender, no organomegaly or masses, normal bowel sounds. Patient is ambulatory into the ED of her own accord. Documenting provider has reviewed patient's vital signs: yes Course Course ED Course: With her benign abdominal examination at this time in the excessive radiation a CT would give her, think plain films of her abdomen are indicated. Will do baseline lab work as well. This may just simply represent constipation but will look at urine as well just to ensure no significant hematuria that might point towards any stone pathology. If her flat and upright show significant stool burden and labs are reassuring, will likely recommend trial of outpatient treatment of constipation and follow up in clinic. Given her history, would advocate that this is a patient that perhaps should consider early screening colonoscopy. Will guide workup here accordingly and do CT imaging if indicated. Reevaluation(s) Time of Reevaluation #1: 10:56 Reevaluation #1: Reviewed with Farrah her abdominal film imaging. We also went over her labs. Did offer to do CT imaging if she really wanted this. She is comfortable trying to treat initially with some MiraLax. We did discuss that I would consider having her get an early colonoscopy given all her issues with her bowels. I did do not think that a month's worth of increasing abdominal pain necessitates a further evaluation for diverticulitis with her reassuring examination, reassuring labs. She has declined CT imaging at this time. We have specifically discussed signs and symptoms for return. Vital Signs Vital signs: Initial Vital Signs Temperature 97.4 F L 06/18/24 09:17 Temperature Source Temporal Artery Scan 06/18/24 09:17 Pulse Rate 92 06/18/24 09:17 Respiratory Rate 18 06/18/24 09:17 Blood Pressure 139/95 H 06/18/24 09:17 Blood Pressure Mean 109 H 06/18/24 09:17 Blood Pressure Position Semi-Fowlers 06/18/24 09:17 Pulse Oximetry 100 06/18/24 09:17 Oxygen Delivery Method Room Air 06/18/24 09:17 Vital Signs Temperature 97.4 F L 06/18/24 09:17 Pulse Rate 92 06/18/24 09:17 Respiratory Rate 18 06/18/24 09:17 Blood Pressure 139/95 H 06/18/24 09:17 Pulse Oximetry 100 06/18/24 09:17 Oxygen Delivery Method Room Air 06/18/24 09:17 Temperature 97.4 F L 06/18/24 09:17 Pulse Rate 92 06/18/24 09:17 Respiratory Rate 18 06/18/24 09:17 Blood Pressure 139/95 H 06/18/24 09:17 Pulse Oximetry 100 06/18/24 09:17 Oxygen Delivery Method Room Air 06/18/24 09:17 MDM - Abdominal Pain Lab Data Attestation: I reviewed the patient's lab results. Labs: Lab Results 06/18/24 06/18/24 Range/Units 09:41 09:57 WBC 3.56 L (4.50-11.00) K/uL RBC 4.83 (4.00-5.20) m/uL Hgb 13.6 (12.0-16.0) gm/dL Hct 40.4 (33.0-51.0) % MCV 84 (80-100) fL MCH 28 (26-34) pg MCHC 34 (32-36) gm/dL RDW Coeff of Dilip 13.1 (11.5-15.5) % Plt Count 302 (140-440) K/uL Neut % (Auto) 52.7 (42.0-72.0) % Lymph % (Auto) 30.9 (20-44) % [place] % (Auto) 9.6 (0.0-11.0) % Eos % (Auto) 6.5 (0.0-7.0) % Baso % (Auto) 0.3 (0.0-3.0) % Neut # (Auto) 1.90 (1.7-7.0) K/uL Lymph # (Auto) 1.10 (0.90-2.90) K/uL [place] # (Auto) 0.30 (0.00-0.90) K/UL Eos # (Auto) 0.20 (0.00-0.50) K/uL Baso # (Auto) 0.00 (0.00-0.30) K/uL Abs Immat Gran (auto) 0.00 (0.00-0.30) K/uL Imm/Tot Granulo (auto) 0.0 % Sodium 138 (135-149) mmol/L Potassium 3.8 (3.6-5.1) mmol/L Chloride 107 (96-114) mmol/L Carbon Dioxide 23 (20-32) mmol/L Anion Gap 8 (7-15) mEq/L BUN 6 (5-24) mg/dL Creatinine 0.5 (0.5-1.5) mg/dL Estimated Creat Clear 148.41 Estimated GFR 126 ml/min Glucose 109 (60-115) mg/dL Lactate 1.8 (0.5-1.9) mmol/L Calcium 8.7 (8.4-10.6) mg/dL C-Reactive Protein 1.1 H (0.5-1.0) mg/dL Urine Color Yellow (Yellow) Urine Appearance Clear (Clear) Urine pH 6.0 (5.0-8.5) Ur Specific [place] 1.015 (1.000-1.030) Urine Protein Negative (Negative) Urine Glucose (UA) Negative (Negative) Urine Ketones Negative (Negative) Urine Blood Trace-intact A (Negative) Urine Nitrite Negative (Negative) Urine Bilirubin Negative (Negative) Urine Urobilinogen 0.2 (0.2-1.0) Ur Leukocyte Esterase Negative (Negative) Imaging Data Abdominal x-ray: Attestation: I have reviewed the pertinent imaging results. My impression: Do see some stool but cannot say that this is overwhelmingly constipation, certainly no obstructive changes of the bowel noted. Await Radiology over-read. Radiologist's impression: Patient: FARRAH GARCIA Facility:?[facility] Patient ID:?[id number] Site Patient ID:?[id number]. Site :?[id number] Study:?XRay-Abdomen/Pelvis 2 VIEW-06/18/2024 9:50:00 AM Ordering Physician:Milly Sheppard Final Report: Indication: Pain, constipation. Technique: Abdomen 3 view. Comparison: CT abdomen pelvis dated 07/19/2022. Findings/Impression: Bowel: Bowel pattern is normal. The stool load is likely within normal limits. Soft tissues: No sign of free air. No sign of soft tissue mass. No suspicious calcifications. Cholecystectomy clips. Bones: Thoracolumbar dextrocurvature. Otherwise unremarkable for age. Dictated by Anjel Simpson MD @ 06/18/2024 10:11:01 AM (Electronic Signature) Discharge Plan Discharge Clinical Impression: Abdominal pain Qualifiers: Abdominal location: unspecified location Qualified Code(s): R10.9 - Unspecified abdominal pain Constipation Qualifiers: Constipation type: unspecified constipation type Qualified Code(s): K59.00 - Constipation, unspecified Patient Disposition: Home, Self-Care Condition: Stable Instructions: Constipation (ED), High Fiber Diet (ED), Acute Abdominal Pain (ED) Additional Instructions: Start MiraLax 17 g daily. Can initially take senna 1-2 tablets daily for up to 3-5 days until you have stool production. You do not want to stay on senna chronically but it is certainly safe to use MiraLax daily. Need to drink adequate fluids and have appropriate fiber in your diet to help with constipation as well. Please schedule follow-up appointment with your primary care provider within the next few weeks, sooner if concerns. Need to discuss the possibility of having an early colonoscopy done given your history of reported diverticulitis as well as constipation issues. If you develop increasing abdominal pain, have fever or vomiting with abdominal pain, do recommend re-evaluation here in the ER. Activity Level: Activity as Tolerated Prescriptions: No Action Plegridy 125 mcg/0.5 mL pen injector subcut Q2W Follow Up/Referrals: Provider,Not a Local [Primary Care Provider] - Stand Alone Forms: [employer] Info Instructions
--- NOTE | 2024-06-18 09:31 | CRLHL7_ITS ---
For Patients: As a result of the Century Cures Act, medical imaging exams and procedure reports are released immediately into your electronic medical record. You may view this report before your referring provider. If you have questions, please contact your health care provider. Indication: Pain, constipation. Technique: Abdomen 3 view. Comparison: CT abdomen pelvis dated 07/19/2022. Findings/Impression: Bowel: Bowel pattern is normal. The stool load is likely within normal limits. Soft tissues: No sign of free air. No sign of soft tissue mass. No suspicious calcifications. Cholecystectomy clips. Bones: Thoracolumbar dextrocurvature. Otherwise unremarkable for age. Dictated by Anjel Simpson MD @ 06/18/2024 10:11:01 AM (Electronically Signed)
--- OUTSIDE RECORDS SUMMARY | 2024-06-18 09:37 | XMS_ITS | Referral Summary ---
Author Organization [facility] Address [address] [place] [address] Care Team Providers Care Eyeletter Name Role Phone Elsewhere, Pcp Primary Care Provider Unavailabl e Source Comments Patient records contain information from all sites at [facility]. For routine questions regarding patient records, call [phone] during business hours, M-F 8:00 AM - 5:00 PM Central Time. Record requests for emergency care only can be directed to [phone] at any time.[facility] Encounters Date Type Department Care Team Description 04/23/2024 11:23 AM CDT - 04/23/2024 11:59 PM CDT Hospital Encounter Department of Radiology, [facility] in [place], [place] [address] [place] [address] Altagracia Palacios M.D. Clinical Research Exam Discharge Disposition: Home or Self Care from Last 3 Months Allergies No known active allergies Medications Medication Sig Dispensed Refills Start Date End Date Status ergocalciferol (Vitamin D2) 50,000 Unit capsule Take 1 capsule (50,000 Units total) by mouth once a week. 12 capsule 3 09/19/2023 Active peginterferon beta-1a (Plegridy) 63 mcg/0.5 mL- 94 mcg/0.5 mL pen injector Inject 0.5 mL under the skin every 14 (fourteen) days. 1 mL 10/02/2023 Active Plegridy 125 mcg/0.5 mL pen injector Inject 0.5 mL (125 mcg total) under the skin every 14 (fourteen) days. 3 mL 3 10/20/2023 10/19/2024 Active Active Problems Problem Noted Date Diagnosed Date Multiple Sclerosis 12/05/2022 Social History Tobacco Use Types Packs/Day Years Used Date Smoking Tobacco: Former Cigarettes Q uit: 05/21/2018 Passive Smoke Exposure: Current Smokeless Tobacco: Never Tobacco Cessation:Counseling Given: Not Answered Alcohol Use Standard Drinks/Week Comments Not Currently 0 (1 standard drink = 0.6 oz pur e alcohol) [facility] Utilities Answer Date Recorded In the past 12 months has e electric, gas, oil, or water company threatened to shut off services in your home? No 04/23/2024 Humiliation, Afraid, Rape, and Kick questionnair e Answer Date Recorded Within the last year, have y ou been afraid of your partner or ex-partner? No 12/05/2022 Within the last year, have y ou been humiliated or emotionally abused in other ways by your partner or ex-partner? No Within the last year, have y ou been kicked, hit, slapped, or otherwise physically hurt by your partner or ex-partner? No 12/05/2022 Within the last year, have y ou been raped or forced to have any kind of sexual activity by your partner or ex-partner? No 12/05/2022 Social Connection and Isolat ion Panel [NHANES] Answer Date Recorded In a typical week, how many times do you talk on the phone with family, friends, or neighbors? More than three times a week 12/05/2022 How often do you get togethe r with friends or relatives? Twice a week 12/05/2022 How often do you attend chur or synagogue services? Never 12/05/2022 Do you belong to any clubs o r organizations such as rastafarian groups, unions, fraternal or athletic groups, or school groups? No 12/05/2022 How often do you attend meet ings of the clubs or organizations you belong to? Never 12/05/2022 Are you , , di vorced, , never , or living with a partner? Living with partner 12/05/2022 AUDIT-C Answer Date Recorded Q1: How often do you have a drink containing alc ohol? Never 12/05/2022 Average Number of Drinks Not on file 023 Frequency of Binge Drinking Not on file 11/17 Overall Financial Resource Strain (CARDIA) Answe r Date Recorded How hard is it for you to pa y for the very basics like food, housing, medical care, and heating? Not hard at all 12/05/2022 [facility] of Occupat ional Health - Occupational Stress Questionnaire Answer Date Recorded Do you feel stress - tense, restless, nervous, or anxious, or unable to sleep at night because your mind is troubled all the time - these days? Not at all 12/05/2022 Exercise Vital Sign Answer Date Recorde d On average, how many days pe r week do you engage in moderate to strenuous exercise (like a brisk walk)? 0 days 04/23/2024 On average, how many minutes do you engage in exercise at this level? 0 min 04/23/2024 Hunger Vital Sign Answer Date Recorded Within the past 12 months, y ou worried that your food would run out before you got the money to buy more. Never true 04/23/20 24 Within the past 12 months, t he food you bought just didn't last and you didn't have money to get more. Never true 04/23/2024 PRAPARE - Transportation Answer Date Re corded In the past 12 months, has l ack of transportation kept you from medical appointments or from getting medications? No 05/2024 In the past 12 months, has l ack of transportation kept you from meetings, work, or from getting things needed for daily living? No 04/23/2024 Nutrition Answer Date Recorded On average, how many serving s of fruits and vegetables do you eat per day (serving size is equal to 1 cup or approximately the size of a tennis ball)? 0-2 04/23/2024 Dental Answer Date Recorded Dental: Regular Dentist No 12/05/19 23 Employment Answer Date Recorded Employment status Employed and actively working without restrictions 04/23/2024 Housing Stability Answer Date Recorded What is your living situation today? I have a [facility] [place] place to live 04/23/2024 Education Answer Date Recorded What is the highest level of school you have completed or the highest degree you have received? 12th grade 12/05/2022 Sex and Gender Information Value Date Recorded Sex Assigned at Female 12/05/2022 2:11 PM FUNDING SPECIALIST Gender Identity Female 12/05/2022 2:11 PM FUNDING SPECIALIST Sexual Orientation Straight 12/05/2022 2: 11 PM FUNDING SPECIALIST Last Filed Vital Signs Vital Sign Reading Time Taken Comments Blood Pressure 101/64 02/13/2023 9:51 AM CDT Pulse 84 02/13/2023 9:51 AM CDT Temperature 36.7 ??C (98.1 ??F) 02/13/2023 9:51 AM CD T Respiratory Rate - - Oxygen Saturation 96% 02/13/2023 9:51 AM CDT Inhaled Oxygen Concentration - - Weight 102 kg (224 lb 13.9 oz) 09/18/2023 3:02 P M CDT Height 170.5 cm (5' 7.13) 09/18/2023 3:02 PM CD T Body Mass Index 35.09 09/18/2023 3:02 PM CDT Plan of Treatment Upcoming Encounters Date Type Department Care Team (Latest Contact Info) Description 07/23/2024 11:30 AM CDT Clinical Communication Virtual Review in [place], [place] [address] [place] [address] 07/25/2024 1:30 PM CDT Appointment Department of Radiology, [facility] in [place], [place] [address] [place] [phone] Altagracia Palacios M.D. [address] [place] [phone] 07/26/2024 9:00 AM CDT Appointment Department of Laboratory Medicine and Pathology, [facility], in [place], [place] [address] [place] [phone] Altagracia Palacios M.D. [address] [place] [phone] 07/26/2024 11:00 AM CDT Office Visit Department of Neurology in [place], [place] [address] [place] [phone] Altagracia Palacios M.D. [address] [place] [phone] Medical Devices Implanted Type Area Marriage And Family Social Worker Device Identifier Shelf Expiration Date Model / Serial / Lot Nexplanon In Left Arm Gynecologic Other Left: Arm Procedures Procedure Name Priority Date/Time Associated Diagnosis Comments MR BRAIN WITHOUT AND WITH IV CONTRAST RAD - Routine (most inpatients and all outpatients) 04/23/2024 12:20 PM CDT Clinical Research Exam from Last 3 Months Results * MR Brain without and with IV Contrast (04/23/2024 12:20 PM CDT) Anatomical Region Laterality Modality Head, Brain, Neuroradiology RST LOS, Neuroradiology ARZ LOS, Neuroradiology FLA LOS N/A Magnetic Resonance Impressions 04/23/2024 1:39 PM CDT 1. Exam performed for research purposes without significant change from MR dated 10/28/2023. Redemonstration of two nonenhancing T2 hyperintense foci within the right frontal lobe adjacent to a developmental venous anomaly. 2. Redemonstrated cerebellar tonsillar herniation at the level of foramen magnum, suggestive of underlying Chiari I malformation. Narrative 04/23/2024 1:39 PM CDT EXAM: MR BRAIN WITHOUT AND WITH IV CONTRAST COMPARISON: MR brain with and without contrast 10/28/2012 FINDINGS: Exam performed for research purposes per IRB: [id number] . Redemonstration of nonenhancing T2 hyperintense foci within the subcortical white matter of the right frontal lobe and within the right periventricular matter of the right frontal lobe (series 3/image 53 and 67, respectively), overall stable when compared to prior study. No additional parenchymal lesions. Redemonstrated cerebellar tonsillar herniation by approximately 8 mm at the level of foramen magnum, suggestive of underlying Chiari I malformation. Unchanged nonspecific focal enhancement within the right internal auditory canal (series 5/image 151). Unchanged mild left and minimal right maxillary sinus thickening. Unchanged scattered mucosal thickening of the ethmoid air cells including opacification of a inferior right mastoid air cell. Procedure Note Jasen Lezama M.B.B.S., M.MED. - 04/23/2024 EXAM: MR BRAIN WITHOUT AND WITH IV CONTRAST COMPARISON: MR brain with and without contrast 10/28/2012 FINDINGS: Exam performed for research purposes per IRB: [id number] . Redemonstration of nonenhancing T2 hyperintense foci within thesubcortical white matter of the right frontal lobe and within the rightperiventricular matter of the right frontal lobe (series 3/image 53 and67, respectively), overall stable when compared to prior study. No additional parenchymal lesions. Redemonstratedcerebellar tonsillar herniation by approximately 8 mm at the level offoramen magnum, suggestive of underlying Chiari I malformation. Unchanged nonspecific focal enhancement within the right internal auditorycanal (series 5/image 151). Unchanged mild left and minimal right maxillary sinus thickening.Unchanged scattered mucosal thickening of the ethmoid air cells includingopacification of a inferior right mastoid air cell. IMPRESSION: 1. Exam performed for research purposes without significant change from MRdated 10/28/2023. Redemonstration of two nonenhancing T2 hyperintense fociwithin the right frontal lobe adjacent to a developmental venousanomaly. 2. Redemonstrated cerebellar tonsillar herniation at the level of foramenmagnum, suggestive of underlying Chiari I malformation. Altagracia Palacios M.D. IMG MRI PROCEDURES from Last 3 Months Care Teams Eyeletter Relationship Specialty Start Date End Date Elsewhere, Pcp PCP - General Internal Medicine 12/03/22
--- OUTSIDE RECORDS SUMMARY | 2024-06-18 09:37 | XMS_ITS | Encounter Summary ---
Author Organization [facility] Address [address] [place] [address] Care Team Providers Care Vac Press Operator Name Role Phone Elsewhere, Pcp Primary Care Provider Unavailabl e Reason for Referral * MRI/CAT/PET Scan (Routine) - Closed Specialty Diagnoses / Procedures Referred By Yanira martini Referred To Contact Radiology Diagnoses Clinical Research Exam Procedures MR Brain without and with IV Contrast Altagracia Palacios M.D. [address] [place] [address] [facility] Referral ID Status Reason Start Date Expiration Date Visits Re quested Visits Authorized [id number] Closed 02/10/2024 02/09/2025 1 1 Encounter Details Date Type Department Care Team (Late st Contact Info) Description 02/09/2024 Orders Only Department of Neurology in [place], [place] [address] [place] [phone] Aisha Post Clinical Research Exam (Primary Dx) Social History Tobacco Use Types Packs/Day Years Used Date Smoking Tobacco: Former Cigarettes Q uit: 05/21/2018 Passive Smoke Exposure: Current Smokeless Tobacco: Never Alcohol Use Standard Drinks/Week Comments Not Currently 0 (1 standard drink = 0.6 oz pur e alcohol) Humiliation, Afraid, Rape, and Kick questionnair e [...] 12/05/2022 How often do you attend chur ch or anabaptist services? Never 12/05/2022 Do you belong to any clubs o r organizations such as mormon groups, unions, fraternal or athletic groups, or [...] and heating? Not hard at all 12/05/2022 [facility] of Occupat ional Health - Occupational Stress [...] exercise (like a brisk walk)? 0 days 12/05/2022 On average, how many minutes do you engage in exercise at this level? 0 min 12/05/2022 Hunger Vital Sign Answer Date Recorded Within the past 12 months, y ou worried that your food would run out before you got the money to buy more. Never true 12/05/19 Within the past 12 months, t he food you bought just didn't last and you didn't have money to get more. Never true 12/05/2022 PRAPARE - Transportation Answer Date Re corded In the past 12 months, has l ack of transportation kept you from medical appointments or from getting medications? No 11/17 In the past 12 months, has l ack of transportation kept you from meetings, work, or from getting things needed for daily living? No 12/05/2022 Housing Stability Vital Sign Answer Leopoldo e Recorded In the last 12 months, was t here a time when you were not able to pay the mortgage or rent on time? No 12/05/2022 In the last 12 months, how many places have you lived? 1 12/05/2022 In the last 12 months, was t here a time when you did not have a steady place to sleep or slept in a fdc (including now)? No 12/05/2022 Nutrition Answer Date Recorded Nutrition: EVOO Fat Source No 12/05 On average, how many serving s of fruits and vegetables do you eat per day (serving size is equal to 1 cup or approximately the size of a tennis ball)? 2-3 12/05/2022 Dental Answer Date Recorded Dental: Regular Dentist No 12/05/19 Employment Answer Date Recorded Employment status Employed and actively working without restrictions 12/05/2022 Education Answer Date Recorded What is the highest level of school you have completed or the highest degree you have received? 12th grade 12/05/2022 Sex and Gender Information Value Date Recorded Sex Assigned at Female 12/05/2022 2:11 PM LOG LOADER HELPER Gender Identity Female 12/05/2022 2:11 PM LOG LOADER HELPER Sexual Orientation Straight 12/05/2022 2: 11 PM LOG LOADER HELPER documented as of this encounter Plan of Treatment Upcoming Encounters Date Type Department Care Team (Latest Contact Info) Description 07/23/2024 11:30 AM CDT Clinical Communication Virtual Review in [place] [address] [place] [phone] 07/25/2024 1:30 PM CDT Appointment Department of Radiology, [facility], in [place], [place] [address] [place] [address] Altagracia Palacios M.D. [address] [place] [phone] 07/26/2024 9:00 AM CDT Appointment Department of Laboratory Medicine and Pathology, [facility] in [place], [place] [address] [place] [address] Altagracia Palacios M.D. [address] [place] [phone] 07/26/2024 11:00 AM CDT Office Visit Department of Neurology in [place], [place] [address] [place] [address] Altagracia Palacios M.D. [address] [place] [phone] documented as of this encounter Results * MR Brain without and with IV Contrast (04/23/2024 12:20 PM CDT) Anatomical Region Laterality Modality Head, Brain, Neuroradiology [facility], Neuroradiology [facility], Neuroradiology [facility] N/A Magnetic Resonance Impressions 04/23/2024 1:39 PM [...] Exam performed for research purposes per IRB: [id number] . Redemonstration of nonenhancing T2 hyperintense foci [...] Exam performed for research purposes per IRB: [id number] . Redemonstration of nonenhancing T2 hyperintense foci [...] suggestive of underlying Chiari I malformation. Altagracia SEALS MRI PROCEDURES documented in this encounter Visit Diagnoses Diagnosis Clinical Research Exam- Primary Clinical Research Exam documented in this encounter Care Teams Vac Press Operator Relationship Specialty Start Date End Date Elsewhere, Pcp PCP - General Internal Medicine 12/03/22 documented as of this encounter
--- OUTSIDE RECORDS SUMMARY | 2024-06-18 09:37 | XMS_ITS | Clinical Summary ---
Author Organization [facility] Address [place], [place] [address] Care Team Providers Care Manager In Home Name Role Phone Pcp, No Primary Care Provider Unavailabl e Allergies No known active allergies Medications Hospital, Clinic, or Other Facility Administered Medication Ordered Dose Route Frequency Start Date End Date Status levonorgestrel intrauterine device (MIRENA) 1 DeviceIndications:Encounter for IUD insertion 1 Device IU Q 5 YEARS 09/16/2019 Active Active Problems Problem Noted Date Diagnosed Date (normal spontaneous vaginal delivery) 08/06 01/22/2019 Overview: Component Latest Ref Rng & Units 07/22/2019 HEMOGLOBIN 12.0 - 16.0 g/dL 12.6 MCV 80 - 100 fL 89 Culture No Group B Streptococcus isolated. Estimated Date of Delivery: 08/15/19 Patient's last menstrual period was 11/12/2018 (within days). Last Tdap- 06/10/2019 Last Flu vaccine- 07/27/2019 Glucose (GTT) result- Component Latest Ref Rng & Units 04/30/2019 HEMOGLOBIN 12.0 - 16.0 g/dL 11.5 (L) MCV 80 - 100 fL 90 GLUCOSE,GESTATIONAL 65 - 139 mg/dL 85 20 week US: IMPRESSION: 1.Cephalic presentation. 2.No intrinsic abnormalities noted on anatomic survey. 3.Composite ultrasound age 20 weeks 3 days with BENITEZ of 08/14/2019 with an earlier [...] Term 05/10/07 39w0d 08:00 3.35 kg (7 lb 6 oz) M Vag Name: Vaughn 2 SAB 1 SAB Create lab flowsheet for OB labs- Component Latest Ref Rng & Units 01/08/2019 01/08/2019 01/08/2019 11:17 AM 11:17 AM 11:17 AM [...] data on file. Problems (from 01/08/19 to present) No problems associated with this episode. Allyssa Pedraza, HIMAC.....01/22/2019 9:54 AM Encounter for supervision of other normal , first trimester 04/01/2018 IUD migration 12/23/2013 Diverticulitis 12/03/2013 Overview: Diagnosed with CT scan [facility] 11/10/13. Treated with Cipro for 14 days. Resolved Problems Problem Noted Date Diagnosed Date Resolved Date Supervision of other normal 01/30/2012 12/23/2013 Overview: EDC 08/27/12 based on sure LMP Group B Strep negative on 07/02/12 Hgb 11.4 on 07/23/12 6 hours of labor with first baby Supervision of normal first 04/07/2007 01/30/2012 Immunizations Name Administration Dates Next Due DTP 03/20/1992,1990,1990 ,1990 DTaP 06/12/1995 HIB HbOC (HibTITER) 07/07/1991 Influenza, IIV3 (Age >=3 years) 08/07/2012 Influenza, IIV4 07/27/2019,08/26/2017 MMR 07/07/1991 Oral Polio Vaccine 06/12/1995,03/20/1992, 990,1990 Tdap 06/10/2019,08/14/2009 Family History Relation Name Status Comments Father Alive Mother Alive Son Vaughn Alive Social History Tobacco Use Types Packs/Day Years Used Date Smoking Tobacco: Former Cigarettes 1 12 0 06/2005 - 06/2017 Smokeless Tobacco: Never Tobacco Cessation:Counseling Given: Yes Comments:patient quit 5 months ago; around 2nd hand smoke Alcohol Use Standard Drinks/Week Comments No 0 (1 standard drink = 0.6 oz pur e alcohol) PHQ-2 Answer Date Recorded PHQ-2 Score 0 01/17/2019 Social Connections Answer Date Recorded Frequency of Communication with Friends and Fami ly Not on file 11/13/2021 Financial Resource Strain Answer Date R ecorded Difficulty of Paying Living Expenses Not on file 11/13/2021 Difficulty of Paying Living Expenses Not on file 11/13/2021 Sex and Gender Information Value Date Recorded Sex Assigned at Not on file Gender Identity Not on file Sexual Orientation Not on file Obstetrics History Para Term AB IAB SAB Ectopic Multiple Livin g Live Births 5 2 2 0 2 0 2 2 Date Outcome GA Total Labor Labor/2nd/3rd Weight Sex Type Anes PTL Rosaura A1 A5 Name Clin SAB SAB 2006 Term 39w0 d 8h 00m/ 3.35 kg (7 lb 6 oz) M Vag Vaughn 2011 Term M Vag Last Filed Vital Signs Vital Sign Reading Time Taken Comments Blood Pressure 119/83 10/18/2021 4:06 PM PHOTOVOLTAIC TECHNICIAN Pulse 93 10/18/2021 4:06 PM PHOTOVOLTAIC TECHNICIAN Temperature 37.2 ??C (99 ??F) 10/18/2021 4:06 PM PHOTOVOLTAIC TECHNICIAN Respiratory Rate - - Oxygen Saturation 100% 10/18/2021 4:06 PM PHOTOVOLTAIC TECHNICIAN Inhaled Oxygen Concentration - - Weight 96.2 kg (212 lb) 10/18/2021 4:06 PM PHOTOVOLTAIC TECHNICIAN Height 169 cm (5' 6.54) 01/08/2019 10:47 AM PHOTOVOLTAIC TECHNICIAN Body Mass Index 33.67 01/08/2019 10:47 AM PHOTOVOLTAIC TECHNICIAN Plan of Treatment Health Maintenance Due Date Last Done Comments Depression screening for age 12+ 12/21/2019 12/21/2018, 08/26/2017, 04/29/2017 BMI (ht and wt on same day) for age 18+ 01/08/2020 01/08/2019, 06/15/2018, 05/19/2018, Additional history exists COVID-19 vaccine series ( season) 2023 05/16/2021, 04/25/2021 Influenza for age 9-49 07/18/2024 9, 08/26/2017, 08/07/2012 Pap test for age 21-65 11/29/2025 3, 11/29/2022, 08/26/2017, Additional history exists Tetanus booster 06/10/2029 06/10/2019, 08/14/2009 HIV for age 15-65 Completed 01/08/2019, , 12/26/2011 Hepatitis C screening for age 18-79 Completed 01/08/2019 Tdap Completed 06/10/2019, 08/14/2009 Pneumococcal series for age 6-64 Aged Out No longer eligible based on patient's age to complete this topic Procedures Procedure Name Priority Date/Time Associated Diagnosis Comments HPV THIN PREP Routine 11/29/2022 12:00 PM PHOTOVOLTAIC TECHNICIAN ANTI HIV 1/2 Routine 01/08/2019 11:17 AM PHOTOVOLTAIC TECHNICIAN Encounter for supervision of normal first in first trimester ANTI HCV Routine 01/08/2019 11:17 AM PHOTOVOLTAIC TECHNICIAN Encounter for supervision of normal first in first trimester from Last 3 Months or Most Recently Relevant to Health Maintenance Results * HPV HIGH RISK (11/29/2022 12:00 PM PHOTOVOLTAIC TECHNICIAN) TYPE 16 Negative Negative 12/04/2022 2:46 PM PHOTOVOLTAIC TECHNICIAN [facility] TYPE 18 Negative Negative 12/04/2022 2:46 PM PHOTOVOLTAIC TECHNICIAN [facility] OTHER HIGH RISK TYPES Negative Negative 12/04/2022 2:46 PM PHOTOVOLTAIC TECHNICIAN [facility] Other (Cervical) 11/29/2022 12:00 PM PHOTOVOLTAIC TECHNICIAN 12/02/2022 10:29 AM PHOTOVOLTAIC TECHNICIAN Narrative [facility] - 12/04/2022 2:46 PM PHOTOVOLTAIC TECHNICIAN HPV types 16, 18, 31, 33, 35, 39, 45, 51, 52, 56, 58, 59, 66 and 68 DNA were undetectable or below the pre-set threshold. Methodology: Dejon Denise 4800 HPV Test Shayy Martin A AND P TECHNICIAN MICROBIOLOGY [facility] [address] [place] [address], [place] * ANTI HCV (01/08/2019 11:17 AM PHOTOVOLTAIC TECHNICIAN) HEPATITIS C ANTIBODY Non-React blanka Non-React blanka 01/08/2019 4:09 PM PHOTOVOLTAIC TECHNICIAN [facility] Comment:Antibodies to HCV no t detected; does not exclude the possibility of exposure to HCV. Blood BLOOD SPECIMEN / Unknown Venipuncture / Unknown 01/08/2019 11:17 AM PHOTOVOLTAIC TECHNICIAN 01/08/2019 11:17 AM PHOTOVOLTAIC TECHNICIAN Chitra VALLEJO [facility] [address] [place] [address], [place] * ANTI HIV 1/2 (01/08/2019 11:17 AM PHOTOVOLTAIC TECHNICIAN) HIV-1/HIV-2 ANTIBODY Non-Reacti ve Non-Reacti ve 01/08/2019 4:05 PM PHOTOVOLTAIC TECHNICIAN [facility] Comment:HIV-1 p24 and HIV-1/ HIV-2 Ab not detected. Blood BLOOD SPECIMEN / Unknown Venipuncture / Unknown 01/08/2019 11:17 AM PHOTOVOLTAIC TECHNICIAN 01/08/2019 11:17 AM PHOTOVOLTAIC TECHNICIAN Chitra VALLEJO SEND OUT[employer] [facility] [address] [place] [address], [place] from Last 3 Months or Most Recently Relevant to Health Maintenance Care Teams Manager In Home Relationship Specialty Start Date End Date Pcp, No . PCP - General 1/8/22
--- OUTSIDE RECORDS SUMMARY | 2024-06-18 09:37 | XMS_ITS ---
Author Organization [facility] Address [address] [place] [address] Care Team Providers Care Radiological Engineer Name Role Phone Unavailable Unavailable Unavailable Surgery Details Not on file Complications Check Surgery Details section. Procedure Estimated Blood Loss Check Surgery Details section. Procedure Findings Check Surgery Details section. Procedure Specimens Taken Check Surgery Details section.
--- OUTSIDE RECORDS SUMMARY | 2024-06-18 09:37 | XMS_ITS | Encounter Summary ---
Author Organization [facility] Address [address] [place] [id number] Care Team Providers Care Desk Sergeant Name Role Phone Elsewhere, Pcp Primary Care Provider Unavailabl e Reason for Referral * MRI/CAT/PET Scan (Routine) - Closed Specialty Diagnoses / Procedures Referred By Yanira martini Referred To Contact Radiology Diagnoses Clinical Research Exam Procedures MR Brain without and with IV Contrast Altagracia Palacios M.D. [address] [place] [phone] [facility] Referral ID Status Reason Start Date Expiration Date Visits Re quested Visits Authorized [id number] Closed 02/10/2024 02/09/2025 1 1 Reason for Visit * MRI/CAT/PET Scan (Routine) - Closed Specialty Diagnoses / Procedures Referred By Yanira martini Referred To Contact Radiology Diagnoses Clinical Research Exam Procedures MR Brain without and with IV Contrast Altagracia Palacios M.D. [address] [place] [phone] [facility] Referral ID Status Reason Start Date Expiration Date Visits Re quested Visits Authorized [id number] Closed 02/10/2024 02/09/2025 1 1 Encounter Details Date Type Department Care Team (Latest Contact Info) Description 04/23/2024 11:23 AM CDT - 04/23/2024 11:59 PM CDT Hospital Encounter Department of Radiology, [facility] in [place], [place] [address] [place] [phone] Altagracia Palacios M.D. 200 [place] [phone] Clinical Research Exam Discharge Disposition: Home or Self Care Social History Tobacco Use Types Packs/Day Years Used Date Smoking Tobacco: Former Cigarettes Q uit: 05/21/2018 Passive Smoke Exposure: Current Smokeless Tobacco: Never Alcohol Use Standard Drinks/Week Comments Not Currently 0 (1 standard drink = 0.6 oz pur e alcohol) [facility] Utilities Answer Date Recorded In the past 12 months has e electric, gas, oil, or water [employer] threatened to shut off services in your [...] often do you attend chur ch or druze services? Never 12/05/2022 Do you belong to any clubs o r organizations such as mu-ism groups, unions, fraternal or athletic groups, or [...] and heating? 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 12 capsule 3 09/19/2023 peginterferon beta-1a (Plegridy) 63 mcg/0.5 mL- 94 mcg/0.5 mL pen injector Inject 0.5 mL under the skin every 14 (fourteen) days. 1 mL 10/02/2023 Plegridy 125 mcg/0.5 mL pen injector Inject 0.5 mL (125 mcg total) under the skin every 14 (fourteen) days. 3 mL 3 10/20/2023 10/19/2024 documented as of this encounter Plan of Treatment Upcoming Encounters Date Type Department Care Team (Latest Contact Info) Description 07/23/2024 11:30 AM CDT Clinical Communication Virtual Review in [place], [place] 200 [place] [phone] 07/25/2024 1:30 PM CDT Appointment Department of Radiology, [place], [place] [address] [place] [phone] Altagracia Palacios M.D. [address] [place] [phone] 07/26/2024 9:00 AM CDT Appointment Department of Laboratory Medicine and Pathology, [facility] in [place], [place] [address] [place] [phone] Altagracia Palacios M.D. [address] [place] [phone] 07/26/2024 11:00 AM CDT Office Visit Department of Neurology in [place], [place] [address] [place] [phone] Altagracia Palacios M.D. [address] [place] [phone] documented as of this encounter Procedures Procedure Name Priority Date/Time Associated Diagnosis Comments MR BRAIN WITHOUT AND WITH IV CONTRAST RAD - Routine (most inpatients and all outpatients) 04/23/2024 12:20 PM CDT Clinical Research Exam documented in this encounter Results * MR Brain without [...] Exam performed for research purposes per IRB: [id number] . Redemonstration of nonenhancing T2 hyperintense foci [...] Exam performed for research purposes per IRB: [id number] . Redemonstration of nonenhancing T2 hyperintense foci [...] this encounter Visit Diagnoses Diagnosis Clinical Research Exam documented in this encounter Administered Medications Inactive Administered Medications - up to 3 most recent administrations Medication Order MAR Action Action Date Dose Rate Site gadobutrol injection 0.01-30 mL (GADAVIST) 0.01-30 mL, intravenous, Once in imaging, contrast, Starting on Fri04/23/24 at 1127, For 1 dose, Imaging Protocol Orders, Dose per Radiant Medication Guidelines Intrathecal doses greater than 0.25 mL not recommended. Given 04/23/2024 12:06 PM CDT 10 mL documented in this encounter Care Teams Desk Sergeant Relationship Specialty Start Date End Date Elsewhere, Pcp PCP - General Internal Medicine 12/03/22 documented as of this encounter
--- OUTSIDE RECORDS SUMMARY | 2024-06-18 09:37 | XMS_ITS | Clinical Summary ---
Author Organization [facility] Address [address] [place] [address] Care Team Providers Care Radiology Physician Assistant Name Role Phone Elsewhere, Pcp Primary Care Provider Unavailabl e Source Comments Patient records contain information from all sites at [facility]. For routine questions regarding patient records, call [phone] during business hours, M-F 8:00 AM - 5:00 PM Central Time. Record requests for emergency care only can be directed to [phone] at any time.[facility] Allergies No known active allergies Medications Medication [...] Noted Date Diagnosed Date Multiple Sclerosis 12/05/2022 Encounters Date Type Department Care Team Description 04/23/2024 11:23 AM CDT - 04/23/2024 11:59 PM CDT Hospital Encounter Department of Radiology, [facility] in [place], [place] [address] [place] [phone] Altagracia Palacios M.D. Clinical Research Exam Discharge Disposition: Home or Self Care from Last 3 Months Social History Tobacco Use Types Packs/Day Years Used Date Smoking Tobacco: Former Cigarettes Q uit: 05/21/2018 Passive Smoke Exposure: Current Smokeless Tobacco: Never Tobacco Cessation:Counseling Given: Not Answered Alcohol Use Standard Drinks/Week Comments Not Currently 0 (1 standard drink = 0.6 oz pur e alcohol) [facility] Utilities Answer Date Recorded In the past [...] How often do you attend chur or church services? Never 12/05/2022 Do you belong to any clubs o r organizations such as jainism groups, unions, fraternal or athletic groups, or [...] and heating? 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 [address] [place] [phone] 07/26/2024 9:00 AM CDT Appointment Department of Laboratory Medicine and Pathology, [facility], in [place], [place] [address] [place] [phone] Altagracia Palacios M.D. [address] [place] [phone] 07/26/2024 11:00 AM CDT Office Visit Department of Neurology in [place], [place] [address] [place] [phone] Altagracia Palacios M.D. [address] [place] [phone] Health Maintenance Due Date Last Done Comments HIV Screening 1990 Hepatitis C Screening 1990 Pneumococcal vaccine (0-64 years) (1 of 2 - PCV) 1996 Hepatitis B Vaccines (1 of 3 - 19+ 3-dose series) 2009 Zoster Vaccines (1 of 2) 2009 COVID-19 Vaccine (3 - Pfizer risk series) 06/13/2021 05/16/2021, 04/25/2021 Depression Screening (Annual PHQ-2) 11/17/2023 Influenza Vaccine (#1) 2024 9, 08/26/2017, 08/07/2012, Additional history exists Cervical Cancer Screening 11/29/2025 11/29/2022 DTaP,Tdap,and Td Vaccines (9 - Td or Tdap) 04/18/2033 04/18/2023, 06/10/2019, 08/14/2009, Additional history exists HPV Vaccines Aged Out No longer eligi ble based on patient's age to complete this topic Medical Devices Implanted Type Area Centerpuncher Device Identifier Shelf Expiration Date Model / [...] Exam performed for research purposes per IRB: [id number] . Redemonstration of nonenhancing T2 hyperintense foci [...] Exam performed for research purposes per IRB: [id number] . Redemonstration of nonenhancing T2 hyperintense foci [...] foramenmagnum, suggestive of underlying Chiari I malformation. Orhun H Kantarci M.D. IMG MRI PROCEDURES from Last 3 Months Care Teams Radiology Physician Assistant Relationship Specialty Start Date End Date Elsewhere, Pcp PCP - General Internal Medicine 12/03/22
[2024-06-18 09:46] LABS: Basophils Percent Auto 0.3 % (0.0-3.0); Eosinophils Percent Auto 6.5 % (0.0-7.0); Hematocrit 40.4 % (33.0-51.0); Hemoglobin* 13.6 gm/dL (12.0-16.0); Lymphocytes Percent Auto 30.9 % (20-44); Mean Corpuscular HGB Conc 34 gm/dL (32-36); Mean Corpuscular Hemoglobin 28 pg (26-34); Mean Corpuscular Volume 84 fL (80-100); Monocytes Percent Auto 9.6 % (0.0-11.0); Neutrophils Percent Auto 52.7 % (42.0-72.0); Platelet Count* 302 K/uL (140-440); RDW Coefficient of Variation % 13.1 % (11.5-15.5); Red Blood Count 4.83 m/uL (4.00-5.20); White Blood Count* 3.56 K/uL (4.50-11.00)
[2024-06-18 09:47] LABS: Lactate* 1.8 mmol/L (0.5-1.9)
[2024-06-18 10:01] LABS: Chloride* 107 mmol/L (96-114)
[2024-06-18 10:02] LABS: Potassium* 3.8 mmol/L (3.6-5.1); Sodium* 138 mmol/L (135-149)
[2024-06-18 10:04] LABS: Creatinine* 0.5 mg/dL (0.5-1.5); Est. Creatinine Clearance* 148.41; Estimated Glomerular Filt Rate 126 ml/min
[2024-06-18 10:05] LABS: Anion Gap 8 mEq/L (7-15); Blood Urea Nitrogen* 6 mg/dL (5-24); Calcium* 8.7 mg/dL (8.4-10.6); Carbon Dioxide* 23 mmol/L (20-32); Glucose* 109 mg/dL (60-115)
[2024-06-18 10:08] LABS: C Reactive Protein* 1.1 mg/dL (0.5-1.0)
[2024-06-18 10:09] LABS: Appearance Urine Clear (Clear); Bilirubin Urine Negative (Negative); Blood Urine Trace-intact (Negative); Color Urine Yellow (Yellow); Glucose Urine Negative (Negative); Ketones Urine Negative (Negative); Leukocyte Esterase Urine Negative (Negative); Nitrite Urine Negative (Negative); Protein Urine Negative (Negative); Specific Gravity Urine 1.015 (1.000-1.030); Urobilinogen Urine 0.2 (0.2-1.0)
[2024-06-18 10:40] LABS: Slide Review Reflex No
[2024-06-18 10:53] LABS: RBC Urine 0-2 (0-2); WBC Urine 0-2 (0-5)
== END 2024-06-18 11:10 | disposition home or self-care (01) ==
PROVIDERS: Emergency Provider Family Medicine
DX: R10.9 Unspecified abdominal pain (principal); K59.00 Constipation, unspecified
CPT/HCPCS: 36415; 74019; 80048; 81001; 83605; 85025; 86140; 99283; 99284